=== PATIENT | male | born 1955 | race Caucasian/White ===

== ENCOUNTER 2018-03-24 01:30 | Emergency (ER) | payer MEDICAID, SELFPAY ==
--- NOTE | 2018-03-24 01:30 | DT_ITS ---
This patient was seen during an EMR downtime March 23, 2018 - March 30, 2018. This patient may have a combination of paper and electronic documentation or all paper documentation. All documentation is viewable within the e-chart portion of [employer] for each patient visit.
--- NOTE | 2018-03-24 01:50 | RAD_ITS ---
STUDY: X-RAY CHEST REASON FOR EXAM: Male, 62 years old. Endotracheal and NG tube placement. TECHNIQUE: Single frontal view of the chest. COMPARISON: August 27, 2017 FINDINGS: An endotracheal tube is present with the tip projecting approximately 3.4 cm above the alfredito. An NG tube is present with the tip at the gastroesophageal junction. The tip should be advanced at least 9 cm. There is a new diffuse interstitial pattern which has the appearance of interstitial edema/congestive failure. There is no demonstrated pleural abnormality. Normal size heart. Normal mediastinum and krystyna. Normal visualized pulmonary arteries. Normal visualized aortic arch and descending thoracic aorta. Normal visualized thoracic spine. Normal visualized ribs, clavicles, and shoulders. There is no demonstrated abnormality of the visualized soft tissue structures of the upper abdomen. RAD/Chest 1 View (Portable) IMPRESSION: NG tube tip at gastroesophageal junction. This should be advanced at least 9 cm. Interval development of diffuse interstitial pattern most compatible with interstitial edema/congestive failure. Electronically Signed: William Marie MD at 11:23 EDT , Service support ,
--- NOTE | 2018-03-24 01:55 | RAD_ITS ---
STUDY: X-RAY CHEST REASON FOR EXAM: Male, 62 years old. Nasogastric tube placement/repositioning. TECHNIQUE: Single AP portable supine view of the lower chest and upper abdomen. COMPARISON: 2 portable AP views of the chest and upper abdomen 1356 hours. FINDINGS: The tip of the nasogastric tube now extends below the esophagogastric junction by a 2-3 cm. The sidehole is still in the distal esophagus. There are persistent, asymmetric mixed interstitial and alveolar densities in the visualized lung hui, consistent with inflammatory changes or pulmonary edema. There is no demonstrated pleural abnormality. Normal size heart. Normal mediastinum and krystyna. Normal visualized aortic arch and descending thoracic aorta. There are table multilevel degenerative changes of the visualized spine. Normal visualized ribs, clavicles, and shoulders. There is no demonstrated abnormality of the visualized soft tissue structures of the upper abdomen. RAD/Chest 1 View (Portable) IMPRESSION: 1. Tip of the nasogastric tube is now just below the esophagogastric junction, its sidehole still in the distal esophagus. 2. Stable asymmetric mixed interstitial and alveolar pulmonary inflammatory infiltrates or edema. Electronically Signed: Edilberto Bartholomew MD at 13:58 EDT , Service support ,
--- NOTE | 2018-03-24 11:36 | EKG12_ITS ---
Test Reason : SOB Blood Pressure : / mmHG Vent. Rate : 107 BPM Atrial Rate : 107 BPM P-R Int : 126 ms QRS Dur : 096 ms QT Int : 354 ms P-R-T Axes : 070 011 090 degrees QTc Int : 472 ms Sinus tachycardia Biatrial enlargement Nonspecific T wave abnormality Abnormal ECG Confirmed by MARIANA DORMAN, CORI ([id number]), online content editor VESTA JARA ([id number] on 04/01/2018 6:16:41 PM Referred By: Leta King Confirmed By:CORI PEÑA MD
[2018-03-27 13:12] LABS: Basophil% 1.1 % (0-1); Differential Indicated SCAN CRITERIA MET; Eosinophils% 6.5 % (0-5); Hematocrit 57.4 % (40-54); Hemoglobin 17.8 g/dl (13.0-16.5); Lymphocyte % 37.7 % (19-41); Mean Corpuscular Hgb 28.8 pg (27.0-32.0); Mean Corpuscular Volume 92.9 fL (80-94); Mean Platelet Vol. 11.4 fl (6.2-12.0); Neutrophil % 45.7 % (47-70); POSITIVE COUNT NO; POSITIVE DIFFERENTIAL YES; POSITIVE MORPHOLOGY NO; Platelet Count 261 K/mm3 (150-450); RBC Distribution Width CV 15.2 % (11.6-14.6); RBC Distribution Width SD 51.3 fl (35.1-43.9); Red Blood Count 6.18 M/mm3 (4.6-6.2); White Blood Count 16.1 K/mm3 (4.4-11.0)
[2018-03-27 13:13] LABS: Absolute Lymphocyte Count 6.07 X10^3/ul (0.83-4.51); Absolute Neutrophil Count 7.4 X10^3/uL (2.0-7.7); Basophil# 0.17 X10^3/uL; Differential Comment SCANNED; Eosinophil# 1.04 X10^3/uL; Lymphocyte # 6.07 X10^3/ul (4.0); Monocyte# 1.28 X10^3/uL; Neutrophil # 7.36 X10^3/uL (2.7-7.7)
[2018-03-28 09:37] LABS: BUN 18 mg/dL (7-18); BUN/Creat Ratio 11.1 RATIO (10-20); Creatinine, Serum 1.62 mg/dL (0.70-1.30); EST Glomerular Filtration Rate 46 mL/min (>60); Est Glom Filt Rate - Afr Amer 56 mL/min (>60); Glucose 216 mg/dL (74-106); Lactic Acid 3.5 mmol/L (0.4-2.0); Protein, Total 8.5 g/dL (6.4-8.2)
[2018-03-28 09:38] LABS: ALB/GLOB Ratio 0.9 RATIO (0.9-2.4); AST(SGOT) 154 U/L (15-37); Alanine Aminotransfer ALT/SGPT 104 U/L (16-61); Alkaline Phosphatase 142 U/L (45-117); Anion Gap 6 (5-15); Calcium,Total 8.8 mg/dL (8.5-10.1); Chloride 107 mmol/L (98-107); Globulin 4.5 g/dL (2.2-4.2); Potassium 4.1 mmol/L (3.5-5.1); Sodium Level 142 mmol/L (136-145)
[2018-03-30 14:51] LABS: Allen Test POS; Base Excess -2 mmol/L (-2 to +2); Bicarbonate 27.2 mmol/L (22-26); Blood Gas Specimen Type ART; FI02 100; Mode A-C; O2 Delivery Device Vent; PEEP 5; PO2 298 mmHG (75-100); RR 14; SITE R Radial; SO2 100 % (95-99); Time Given 210; Total Carbon Dioxide 30 mmol/L; Vt 450; pCO2 82.1 mmHg (35-45); pH 7.13 (7.35-7.45)
== END 2018-03-24 03:28 | disposition short-term general hospital (02) ==
LOC: ED 03-25 16:28
PROVIDERS: Emergency Provider Emergency Medicine; Family Provider Nurse Practitioner Family; PCP Nurse Practitioner Family
DX: J96.91 Respiratory failure, unspecified with hypoxia (principal); J44.9 Chronic obstructive pulmonary disease, unspecified; F17.210 Nicotine dependence, cigarettes, uncomplicated
CPT/HCPCS: 31500; 36415; 36600; 71045; 80053; 82803; 83605; 84484; 85025; 87040; 93005; 94002; 94640; 96374; 96375; 99251; 99285; J7030; A4216; G0463

== ENCOUNTER → 2019-05-14 06:18 | Outpatient (CLI) | payer MEDICAID, SELFPAY ==
--- NOTE | 2019-05-20 10:17 | STRESSREP ---
Stress Test Report Date: 05/14/2019 Procedure: Pharmacologic stress nuclear imaging study Indications: Chest pain Consent: Per the patient Procedure: The patient underwent pharmacologic (Regadenoson) evaluation with a peak heart rate of 92 beats per minute (58 %predicted maximal heart rate) and a peak blood pressure of 152/90 mmHg. The baseline ECG demonstrated normal sinus rhythm no significant ST-T changes. EKG during lexiscan infusion revealed no significant change from baseline. EKG post infusion revealed no significant change from baseline [There were no cardiac dysrhythmias pretest, during pharmacologic infusion, or recovery]. [There was no complaint of chest discomfort during pharmacologic infusion or recovery]. The examination was discontinued secondary to completion of protocol. Impression: 1. Lexiscan stress test test is negative for Lexiscan infusion induced EKG changes of ischemia. 2. Lexiscan stress test test is negative for Lexiscan infusion induced chest pain. 3. Results of the nuclear portion of the test is as below Myocardial perfusion imaging study: Technique: The patient was injected with 14.1 millicuries of technetium 99m Cardiolite and subsequently rest SPECT Cardiolite nuclear imaging was obtained in the horizontal long, vertical long, and short axis views. The patient underwent pharmacologic (Regadenoson) evaluation. Please see above for details. The patient was injected with 44.4 millicuries of technetium 99m Cardiolite and subsequently stress SPECT Cardiolite nuclear imaging was obtained in the horizontal long, vertical long, and short axis views. A gated Cardiolite study at peak stress was obtained. Interpretation: Rest and stress SPECT Cardiolite nuclear imaging status post realignment, normalization, and attenuation correction demonstrate mild decrease in radioisotope uptake in the inferior wall and apex prior to attenuation correction. After recognition correction there is improvement in the uptake in the inferior wall and apex with mild decrease in the apical uptake. There is no significant reversibility suggestive of significant ischemia. There is no evidence of significant infarction. The apical fixed perfusion defect is likely apical thinning a normal variant gated images reveal no significant regional wall motion abnormalities. The reported LVEF is 52 %. Impression: 1. There is no evidence of significant ischemia or infarction. 2. Estimated ejection fraction is 52%. This note was generated with [employer] software. It may contain incorrect words, spelling, and punctuation that were not noted in checking the note before signing.
== END ==
PROVIDERS: Family Provider Nurse Practitioner Family; PCP Nurse Practitioner Family; Referring Provider Nurse Practitioner Family; Visit Provider Nurse Practitioner Family
DX: R07.89 Other chest pain (principal); I50.9 Heart failure, unspecified; R06.02 Shortness of breath
CPT/HCPCS: 78452; 93017; A9500; A4216; J2785

== ENCOUNTER → 2019-09-21 12:50 | Outpatient (REF) | payer MEDICAID, SELFPAY ==
[2019-09-14 13:30] VITALS: BMI 35.3
== END ==
LOC: CVS 12:50
PROVIDERS: Family Provider Nurse Practitioner Family; PCP Nurse Practitioner Family; Referring Provider Specialist; Visit Provider Specialist
DX: R55 Syncope and collapse (principal)
CPT/HCPCS: 93270; 93271

== ENCOUNTER 2021-06-06 14:24 | Inpatient (IN) | payer MEDICARE, MEDICAID, SELFPAY ==
[2021-06-06] VITALS (16 sets, daily range): BP systolic 133–156; BP diastolic 78–83; PULSE 87–106; RESP 18–25; TEMP 36.6–36.9; O2SAT 87–96; BMI 33.7; BMI 33.4
--- NOTE | 2021-06-06 14:45 | RAD_ITS ---
STUDY: X-RAY CHEST REASON FOR EXAM: Male, 66 years old. SOB TECHNIQUE: Single AP portable view of the chest. COMPARISON: Comparison is made with prior study dated 03/24/2018. FINDINGS: EKG electrodes are seen. Hyperinflation. Stable mild increased markings at the lung bases suggestive of bibasilar scarring. There is no demonstrated pleural abnormality. Normal size heart. Normal mediastinum and krystyna. Normal visualized pulmonary arteries. Normal visualized aortic arch and descending thoracic aorta. Normal visualized thoracic spine. Normal visualized ribs, clavicles, and shoulders. There is no demonstrated abnormality of the visualized soft tissue structures of the upper abdomen. RAD/Chest 1 View IMPRESSION: Stable bibasilar increased markings at the lung bases suggestive of bibasilar scarring. Electronically Signed: Chalo Bonilla MD at 15:15 EDT , Service support ,
[2021-06-06 14:46] LABS: Absolute Lymphocyte Count 2.15 X10^3/uL (0.83-4.51); Absolute Neutrophil Count 7.7 X10^3/uL (2.0-7.7); Basophil# 0.08 X10^3/uL; Basophil% 0.7 % (0-1); Eosinophil# 0.55 X10^3/uL; Eosinophils% 4.8 % (0-5); Hematocrit 50.4 % (40-54); Hemoglobin 15.9 g/dL (13.0-16.5); Lymphocyte # 2.15 X10^3/ul (0.83-4.51); Lymphocyte % 18.9 % (19-41); Mean Corp Hgb Conc 31.5 g/dL (32-36); Mean Corpuscular Volume 91.8 fL (80-94); Mean Platelet Vol. 9.7 fl (6.2-12.0); Monocyte# 0.83 X10^3/uL; Monocyte% 7.3 % (0-10); NRBC Flagged by Analyzer 0 % (0-5); Neutrophil # 7.69 X10^3/uL (2.7-7.7); Neutrophil % 67.8 % (47-70); Platelet Count 328 K/mm3 (150-450); RBC Distribution Width CV 14.8 % (11.6-14.6); RBC Distribution Width SD 50.5 fl (35.1-43.9); Red Blood Count 5.49 M/mm3 (4.6-6.2); White Blood Count 11.4 K/mm3 (4.4-11.0)
[2021-06-06 15:01] LABS: Anion Gap 7 (5-15); BUN 22 mg/dL (7-18); BUN/Creat Ratio 14.7 RATIO (10-20); Calcium,Total 9.1 mg/dL (8.5-10.1); Chloride 104 mmol/L (98-107); EST Glomerular Filtration Rate 50 mL/min (>60); Est Glom Filt Rate - Afr Amer 61 mL/min (>60); Estimated Creatinine Clearance 41.66 ml/min; Glucose 97 mg/dL (74-106); Potassium 3.9 mmol/L (3.5-5.1); Sodium Level 140 mmol/L (136-145)
--- NOTE | 2021-06-06 15:05 | EKG12_ITS ---
Test Reason : SOB Blood Pressure : / mmHG Vent. Rate : 089 BPM Atrial Rate : 089 BPM P-R Int : 138 ms QRS Dur : 090 ms QT Int : 344 ms P-R-T Axes : 067 011 072 degrees QTc Int : 418 ms Normal sinus rhythm Normal ECG Confirmed by MARIANA DORMAN, CORI ([id number]), film editor supervisor EDU GUTIERREZ ([id number]) on 06/11/2021 8:36:10 AM Referred By: ELLIS Confirmed By:CORI PEÑA MD
[2021-06-06] MEDS: Ipratropium/Albuterol Sulfate 3 ML AMPUL.NEB INHALATION ×3 (15:26→23:01)
[2021-06-06 15:31] LABS: Troponin-I HS 8 pg/mL (3.0-78.0)
[2021-06-06] MEDS: MethylPREDNISolone 125 MG/2 ML Vial IV (15:52)
[2021-06-06] MEDS: Albuterol 2.5 MG/3 ML VIAL.NEB. INHALATION ×2 (16:09)
--- NOTE | 2021-06-06 16:13 | ED.VIS.DYS ---
HPI History of Present Illness Chief Complaint: Shortness of Breath Informant: patient Narrative Narrative: 66-year-old male with a history of COPD chronic kidney disease hypertension presents to the emergency department with worsening shortness of breath for 2 weeks. Patient notes a cough with some mild sputum production. He notes dyspnea on exertion. No reported fevers. [facility] Medical History (Updated 06/06/21 @ 16:[address] Carlos Manley DO) Acute diverticulitis Chest pain CHF (congestive heart failure) CKD (chronic kidney disease), stage III Colitis, acute COPD (chronic obstructive pulmonary disease) COPD with exacerbation Cough Diverticulitis large intestine Diverticulitis of large intestine with abscess Essential hypertension Sepsis Shortness of breath Small bowel obstruction Tobacco use Type 2 diabetes mellitus without complication Home Medications albuterol sulfate 90 mcg/actuation aerosol inhaler 2 puff INHALATION 4X/DAY PRN g 06/03/19 [History Last Taken Unknown] amlodipine 5 mg tablet 5 mg PO DAILY 06/03/19 [History Last Taken Unknown] budesonide-formoterol HFA 160 mcg-4.5 mcg/actuation aerosol inhaler 2 puff INHALATION BID 06/03/19 [History Last Taken Unknown] tiotropium bromide 18 mcg capsule with inhalation device 1 cap INHALATION DAILY 06/03/19 [History Last Taken Unknown] losartan 100 mg-hydrochlorothiazide 12.5 mg tablet 1 tab PO DAILY #90 tab 06/23/19 [Rx Last Taken Unknown] losartan 100 mg tablet 100 mg PO DAILY #90 tab 08/03/20 [Rx Last Taken Unknown] hydrochlorothiazide 25 mg tablet 25 mg PO DAILY #90 tab 08/17/20 [Rx Last Taken Unknown] Allergy/AdvReac Type Severity Reaction Status Date / Time lisinopril AdvReac Intermediate cough Verified 06/06/21 14:28 Family History Mother Diabetes Father Diabetes Brother CAD (coronary artery disease) stents Brother , age 58 CAD (coronary artery disease) stents Sister Diabetes Surgical History History of appendectomy Social History Smoking Status: Former smoker how long ago did patient quit smokin week ago alcohol intake: never substance use type: does not use caffeine: Yes Type: coffee Number of servings: 1 ROS ROS ED Constitutional Constitutional ED: Denies chills or weight loss Eyes Eyes: Denies change in vision or diplopia ENT ENT ED: Denies ear pain, rhinorrhea or sore throat Cardiovascular Cardiovascular: Denies chest pain, orthopnea, palpitations or racing heartbeat Respiratory/Chest Respiratory/Chest: Reports cough, dyspnea, dyspnea on exertion and sputum; Denies orthopnea Gastrointestinal Gastrointestinal: Denies abdominal pain, diarrhea, nausea or vomiting Genitourinary Genitourinary ED: Denies dysuria, hematuria or urinary frequency Musculoskeletal Musculoskeletal: Denies arthralgias or myalgias Integumentary Denies abscess or rash Neurologic Neurologic: Denies headache(s) or weakness Psychiatric Psychiatric: Denies anxiety, depression, suicidal ideation or suicidal thoughts Endocrine Endocrinology: Denies polydipsia, polyphagia or polyuria Allergic/Immunologic Allergic/Immunologic ED: Denies mouth swelling, tongue swelling or urticaria EXAM Physical Exam Narrative Exam Narrative: 66-year-old male sitting in the bed. He is on 2 L nasal cannula and is satting 89%. Const Vital Signs: 06/06/21 14:25 06/06/21 14:27 06/06/21 14:49 Temperature 97.8 F 97.8 F Temperature Source Temporal Temporal Pulse Rate 97 97 Respiratory Rate 18 18 Respiratory Effort Respiratory Depth Respiratory Pattern Blood Pressure 156/80 H 156/80 H Blood Pressure Mean 105 105 Pulse Ox 92 92 88 Oxygen Delivery Method Room Air Room Air Room Air Oxygen Flow Rate (L/min) 06/06/21 14:52 06/06/21 15:27 06/06/21 15:30 Temperature 98.2 F Temperature Source Oral Pulse Rate 87 88 Respiratory Rate 24 H 21 H Respiratory Effort Short of Breath Labored Respiratory Depth Shallow Respiratory Pattern Tachypnea Blood Pressure 138/83 H Blood Pressure Mean 101 Pulse Ox 91 95 93 Oxygen Delivery Method Nasal Cannula Nasal Cannula Nasal Cannula Oxygen Flow Rate (L/min) 2 3 2 Positive well nourished and well developed General Appearance ED: well developed HEENT Reports normocephalic, head/scalp atraumatic and moist mucous membranes Eyes PERRL and EOMs intact bilaterally Neck no lymphadenopathy, supple and no JVD Resp Effort and Inspection: other Tachypnea Auscultation: wheezes and diminished lung sounds Cardio regular rate, regular rhythm and no murmurs GI normal to inspection, nondistended, normoactive bowel sounds and non-tender Palpation: soft Back/Spine no CVA tenderness and normal ROM Extremity normal to inspection General Extremety ED: Negative for edema General Extremity: Negative for edema Neuro oriented x3 and CN's II-XII intact bilaterally Sensorium / Orientation: alert Motor Exam: strength 5/5 throughout Psych mental status grossly normal Mood & Affect: Negative for depressed or tearful Skin no rashes or lesions noted and no wounds MDM MDM MDM Narrative Medical decision making narrative: White count slightly elevated 11.4. Troponin is 8. My impression of the chest x-ray is no acute process. Patient received Solu-Medrol as well as breathing treatments. Post breathing treatments on room air he is 88%. Plan will be for admission. Covid is negative. Lab Data Attestation: I reviewed the patient's lab results. Labs: Laboratory Results - last 24 hr 06/06/21 06/06/21 06/06/21 14:39 14:39 14:39 WBC 11.4 H RBC 5.49 Hgb 15.9 Hct 50.4 MCV 91.8 MCH 29.0 MCHC 31.5 L RDW Std Deviation 50.5 H RDW Coeff of Kannan 14.8 H Plt Count 328 MPV 9.7 Immature Gran % (Auto) 0.500 Neut % (Auto) 67.8 Lymph % (Auto) 18.9 L Franklin % (Auto) 7.3 Eos % (Auto) 4.8 Baso % (Auto) 0.7 Absolute Neuts (auto) 7.7 Absolute Lymphs (auto) 2.15 Nucleated RBC % 0 Sodium 140 Potassium 3.9 Chloride 104 Carbon Dioxide 29.0 Anion Gap 7 BUN 22 H Creatinine 1.50 H Estim Creat Clear Calc 41.66 Est GFR (MDRD) Af Amer 61 Est GFR (MDRD) Non-Af 50 L BUN/Creatinine Ratio 14.7 Glucose 97 Lactic Acid Calcium 9.1 Troponin I High Sens 8 06/06/21 15:20 WBC RBC Hgb Hct MCV MCH MCHC RDW Std Deviation RDW Coeff of Kannan Plt Count MPV Immature Gran % (Auto) Neut % (Auto) Lymph % (Auto) Franklin % (Auto) Eos % (Auto) Baso % (Auto) Absolute Neuts (auto) Absolute Lymphs (auto) Nucleated RBC % Sodium Potassium Chloride Carbon Dioxide Anion Gap BUN Creatinine Estim Creat Clear Calc Est GFR (MDRD) Af Amer Est GFR (MDRD) Non-Af BUN/Creatinine Ratio Glucose Lactic Acid 0.7 Calcium Troponin I High Sens Radiography Diagnostic Testing: Radiology Impression Chest X-Ray 06/06/21 14:45 IMPRESSION: Stable bibasilar increased markings at the lung bases suggestive of bibasilar scarring. Electronically Signed: Chalo Bonilla MD at 15:15 EDT , Service support , EKG Initial EKG: Attestation: I personally reviewed and interpreted this EKG as follows: Comments: Normal sinus rhythm at a rate of 89 bpm Discharge Plan Dx/Rx/DC Orders Clinical Impression: Acute exacerbation of chronic obstructive pulmonary disease, Hypoxemia Disposition Disposition: Acute Care [facility]
[2021-06-06 16:15] LABS: Lactic Acid 0.7 mmol/L (0.4-1.9)
--- NOTE | 2021-06-06 16:38 | PCM.HP.STD ---
Documented by User: SCOT Pepper 06/06/21 17:46 HPI - General General Date of Admission: 06/06/21 Date of Service: 06/06/21 Chief Complaint: Shortness of breath HPI Narrative JESUS RICARDO, is a 66 M who presents with complaints of worsening shortness of breath over the past 2 weeks. Patient also notes that he has had an increase in sputum production and an increase in the severity of his cough. Patient notes that he has more shortness of breath with exertion. Patient has a history of CHF, COPD, chronic kidney disease. Patient denies fever, chills, chest pain, nausea, vomiting. [facility] Medical History Acute diverticulitis Chest pain CHF (congestive heart failure) CKD (chronic kidney disease), stage III Colitis, acute COPD (chronic obstructive pulmonary disease) COPD with exacerbation Cough Diverticulitis large intestine Diverticulitis of large intestine with abscess Essential hypertension Sepsis Shortness of breath Small bowel obstruction Tobacco use Type 2 diabetes mellitus without complication Home Medications albuterol sulfate 90 mcg/actuation aerosol inhaler 2 puff INHALATION 4X/DAY PRN g 06/03/19 [History Last Taken 06/06/21] amlodipine 5 mg tablet 5 mg PO DAILY 06/03/19 [History Last Taken 06/05/21] budesonide-formoterol HFA 160 mcg-4.5 mcg/actuation aerosol inhaler 2 puff INHALATION BID 06/03/19 [History Last Taken 06/06/21] tiotropium bromide 18 mcg capsule with inhalation device 1 cap INHALATION DAILY 06/03/19 [History Last Taken 06/06/21] losartan 100 mg-hydrochlorothiazide 12.5 mg tablet 1 tab PO DAILY #90 tab 06/23/19 [Rx Last Taken 06/06/21] [id number] [Trelegy Ellipta] 1 inh INHALATION DAILY 06/06/21 [History Last Taken Unknown] Allergy/AdvReac Type Severity Reaction Status Date / Time lisinopril AdvReac Intermediate cough Verified 06/06/21 14:28 Family History Mother Diabetes Father Diabetes Brother CAD (coronary artery disease) stents Brother , age 58 CAD (coronary artery disease) stents Sister Diabetes Surgical History History of appendectomy Social History Smoking Status: Current every day smoker tobacco type: cigarettes alcohol intake: never substance use type: does not use caffeine: Yes Type: coffee Number of servings: 1 ROS Constitutional Constitutional: Denies anorexia, chills, fatigue, fever(s) or weakness Cardiovascular Cardiovascular: Denies chest pain, edema or palpitations Respiratory/Chest Respiratory/Chest: Reports cough, dyspnea on exertion, shortness of breath at rest, shortness of breath with exertion and tachypnea Gastrointestinal Gastrointestinal: Denies abdominal pain, constipation, diarrhea, nausea or vomiting Genitourinary Genitourinary: Denies dysuria Musculoskeletal Musculoskeletal: Denies back pain, extremity pain, joint pain or joint stiffness Integumentary Integumentary: Denies dry skin Neurologic Neurologic: Denies abnormal gait, abnormal speech, confusion, dizziness or focal weakness Psychiatric Psychiatric: Denies anxiety or depression Endocrine Endocrinology: Denies change in body appearance Hematologic/Lymphatic Hematologic/Lymphatic: Denies easy bleeding or easy bruising Vital Signs Vital Signs Vital Signs: 06/06/21 14:25 06/06/21 14:27 06/06/21 14:49 Temperature 97.8 F 97.8 F Temperature Source Temporal Temporal Pulse Rate 97 97 Respiratory Rate 18 18 Respiratory Effort Respiratory Depth Respiratory Pattern Blood Pressure 156/80 H 156/80 H Blood Pressure Mean 105 105 Pulse Ox 92 92 88 Oxygen Delivery Method Room Air Room Air Room Air Oxygen Flow Rate (L/min) 06/06/21 14:52 06/06/21 15:27 06/06/21 15:30 Temperature 98.2 F Temperature Source Oral Pulse Rate 87 88 Respiratory Rate 24 H 21 H Respiratory Effort Short of Breath Labored Respiratory Depth Shallow Respiratory Pattern Tachypnea Blood Pressure 138/83 H Blood Pressure Mean 101 Pulse Ox 91 95 93 Oxygen Delivery Method Nasal Cannula Nasal Cannula Nasal Cannula Oxygen Flow Rate (L/min) 2 3 2 06/06/21 16:17 Temperature Temperature Source Pulse Rate 95 Respiratory Rate 25 H Respiratory Effort Respiratory Depth Respiratory Pattern Blood Pressure Blood Pressure Mean Pulse Ox Oxygen Delivery Method Oxygen Flow Rate (L/min) Weight Weight: 197 lb Body Mass Index (BMI) 33.7 Physical Exam Const alert, oriented x3 and no apparent distress General Appearance: cooperative HEENT normocephalic and head/scalp atraumatic Eyes conjunctivae normal and no scleral icterus Neck supple and no JVD General: trachea midline Resp normal respiratory effort and normal air movement Effort and Inspection: tachypneic Auscultation: wheezes expiratory wheezes Cardio regular rate, regular rhythm, S1 normal heart sound and S2 normal heart sound GI normal to inspection, nondistended, normoactive bowel sounds, soft to palpation and non-tender Extremity normal capillary refill and no clubbing, cyanosis or edema General Extremity: no tenderness to palpation of joints or extremities Skin General Skin Exam: no breakdown and turgor normal Lesions: no lesions Rashes: no rashes Neuro no focal motor deficits and no sensory deficits noted Speech: speech normal Motor Exam: Negative for general weakness Psych thought process normal, cooperative and affect normal Appearance: appropriate Results Lab / Micro Data Result Diagrams: 06/06/21 14:39 06/06/21 14:39 Labs: Laboratory Results - last 24 hr 06/06/21 14:39: WBC 11.4 H, RBC 5.49, Hgb 15.9, Hct 50.4, MCV 91.8, MCH 29.0, MCHC 31.5 L, RDW Std Deviation 50.5 H, RDW Coeff of Kannan 14.8 H, Plt Count 328, MPV 9.7, Immature Gran % (Auto) 0.500, Neut % (Auto) 67.8, Lymph % (Auto) 18.9 L, Lamb % (Auto) 7.3, Eos % (Auto) 4.8, Baso % (Auto) 0.7, Absolute Neuts (auto) 7.7, Absolute Lymphs (auto) 2.15, Nucleated RBC % 0 06/06/21 14:39: Sodium 140, Potassium 3.9, Chloride 104, Carbon Dioxide 29.0, Anion Gap 7, BUN 22 H, Creatinine 1.50 H, Estim Creat Clear Calc 41.66, Est GFR (MDRD) Af Amer 61, Est GFR (MDRD) Non-Af 50 L, BUN/Creatinine Ratio 14.7, Glucose 97, Calcium 9.1 06/06/21 14:39: Troponin I High Sens 8 06/06/21 15:20: Lactic Acid 0.7 Micro: Microbiology 06/06/21 14:38 Mucosa - Nose SARS-CoV-2 Antigen (Rapid) - Final Radiology Impression Chest X-Ray 06/06/21 14:45 IMPRESSION: Stable bibasilar increased markings at the lung bases suggestive of bibasilar scarring. Electronically Signed: Chalo Bonilla MD at 15:15 EDT , Service support , Assessment & Plan Assessment/Plan (1) Acute exacerbation of chronic obstructive pulmonary disease: PLAN: 1. Acute exacerbation of COPD -Admit to [facility] for observation -Chest x-ray negative for pneumonia or edema, Covid antigen negative as well -Continue oxygen therapy per protocol -As needed albuterol nebulizer treatments ordered along with scheduled DuoNeb -IV Solu-Medrol ordered -CBC and BMP ordered daily -No signs per protocol 2. Hypertension -Continue home medication regimen including amlodipine, losartan.. -No signs per protocol trend BP 3. CHF -Stable, no peripheral edema noted. -Continue home medication regimen 4. Chronic kidney disease stage IIIa -Patient consistent with baseline creatinine. -BMP ordered daily, will trend DVT prophylaxis-not indicated This patient was seen by Anitha Tapia NP-C under the supervision of Dr. David. Documented by User: Dr. Artie David, 06/06/21 17:56 HPI - General General Date of Admission: 06/06/21 Chief Complaint: Shortness of breath HPI Narrative Six 6-year-old male presents with increasing shortness of breath over the past several weeks. He presented here 88% on room air. Patient had chest x-ray that was negative for any infiltrate or pulmonary vascular congestion. COVID-19 test was negative. Patient was treated for acute exacerbation of COPD with bronchodilators as well as methylprednisolone. [facility] Medical History Acute diverticulitis Chest pain CHF (congestive heart failure) CKD (chronic kidney disease), stage III Colitis, acute COPD (chronic obstructive pulmonary disease) COPD with exacerbation Cough Diverticulitis large intestine Diverticulitis of large intestine with abscess Essential hypertension Sepsis Shortness of breath Small bowel obstruction Tobacco use Type 2 diabetes mellitus without complication Home Medications albuterol sulfate 90 mcg/actuation aerosol inhaler 2 puff INHALATION 4X/DAY PRN g 06/03/19 [History Last Taken 06/06/21] amlodipine 5 mg tablet 5 mg PO DAILY 06/03/19 [History Last Taken 06/05/21] budesonide-formoterol HFA 160 mcg-4.5 mcg/actuation aerosol inhaler 2 puff INHALATION BID 06/03/19 [History Last Taken 06/06/21] tiotropium bromide 18 mcg capsule with inhalation device 1 cap INHALATION DAILY 06/03/19 [History Last Taken 06/06/21] losartan 100 mg-hydrochlorothiazide 12.5 mg tablet 1 tab PO DAILY #90 tab 06/23/19 [Rx Last Taken 06/06/21] [id number]-keuwnsrd [Trelegy Ellipta] 1 inh INHALATION DAILY 06/06/21 [History Last Taken Unknown] Allergy/AdvReac Type Severity Reaction Status Date / Time lisinopril AdvReac Intermediate cough Verified 06/06/21 14:28 Family History Mother Diabetes Father Diabetes Brother CAD (coronary artery disease) stents Brother , age 58 CAD (coronary artery disease) stents Sister Diabetes Surgical History History of appendectomy Social History Smoking Status: Current every day smoker tobacco type: cigarettes alcohol intake: never substance use type: does not use caffeine: Yes Type: coffee Number of servings: 1 ROS ROS Narrative All review of systems were negative except as mentioned above in the history of present illness and the other review of systems. Physical Exam Const alert Resp Auscultation: wheezes and diminished lung sounds Cardio regular rate, regular rhythm, S1 normal heart sound and S2 normal heart sound GI normal to inspection, nondistended, normoactive bowel sounds, soft to palpation, non-tender and non-distended Extremity no clubbing, cyanosis or edema Results Lab / Micro Data Attestation: I reviewed the patient's lab results. Result Diagrams: 06/06/21 14:39 06/06/21 14:39 Assessment & Plan Assessment/Plan (1) Acute exacerbation of chronic obstructive pulmonary disease: PLAN: Patient seen and examined independently. Data and vitals reviewed. I agree with the above note by the nurse practitioner. 1. Exacerbation of COPD Continue with bronchodilators as well as methylprednisolone. Prior to discharge, check an ambulatory pulse ox 2. Health maintenance Patient is unvaccinated for COVID-19. He told me that he has who a lot of bad things about the vaccine. I asked him what good things he is heard about COVID-19 to which he did not have an answer. I informed him that the likelihood of him having having severe consequences with COVID-19 given his underlying COPD are high and I disputed his claims that he heard people have from Covid vaccine. Told him I have not seen anyone of the COVID-19 vaccine and that he would have a higher likelihood of dying from Covid. I told the patient that if he were to contract Covid that he would have a high likelihood of going on ventilator as patient is being admitted for respiratory issues without Covid at this time. He agreed, least for now, to get the vaccine. Prior to discharge we'll see if we can arrange for him to get a shot of the [employer] COVID-19 vaccine. 3. VTE prophylaxis not indicated given current observation status. Charges/Coding Visit Charges OBSV E&M: 75859 Initial observation care L2
[2021-06-07] VITALS (13 sets, daily range): BP systolic 119–159; BP diastolic 62–71; PULSE 87–110; RESP 12–25; TEMP 36.2–36.8; O2SAT 90–94
[2021-06-07 05:25] LABS: Absolute Lymphocyte Count 0.85 X10^3/uL (0.83-4.51); Absolute Neutrophil Count 13.7 X10^3/uL (2.0-7.7); Basophil# 0.03 X10^3/uL; Basophil% 0.2 % (0-1); Hematocrit 49.9 % (40-54); Hemoglobin 15.8 g/dL (13.0-16.5); Lymphocyte # 0.85 X10^3/ul (0.83-4.51); Lymphocyte % 5.8 % (19-41); Mean Corp Hgb Conc 31.7 g/dL (32-36); Mean Corpuscular Hgb 29.2 pg (27.0-32.0); Mean Corpuscular Volume 92.2 fL (80-94); Mean Platelet Vol. 10.2 fl (6.2-12.0); Monocyte# 0.12 X10^3/uL; Monocyte% 0.8 % (0-10); NRBC Flagged by Analyzer 0 % (0-5); Neutrophil # 13.66 X10^3/uL (2.7-7.7); Neutrophil % 92.5 % (47-70); Platelet Count 333 K/mm3 (150-450); RBC Distribution Width CV 14.7 % (11.6-14.6); RBC Distribution Width SD 49.9 fl (35.1-43.9); Red Blood Count 5.41 M/mm3 (4.6-6.2); White Blood Count 14.8 K/mm3 (4.4-11.0)
[2021-06-07 05:37] LABS: Anion Gap 7 (5-15); BUN 28 mg/dL (7-18); BUN/Creat Ratio 16.4 RATIO (10-20); Calcium,Total 8.9 mg/dL (8.5-10.1); Chloride 103 mmol/L (98-107); Creatinine, Serum 1.71 mg/dL (0.70-1.30); EST Glomerular Filtration Rate 43 mL/min (>60); Est Glom Filt Rate - Afr Amer 52 mL/min (>60); Estimated Creatinine Clearance 36.54 ml/min; Glucose 143 mg/dL (74-106); Potassium 4.1 mmol/L (3.5-5.1); Sodium Level 138 mmol/L (136-145)
[2021-06-07] MEDS: Ipratropium/Albuterol Sulfate 3 ML AMPUL.NEB INHALATION ×4 (07:19→19:32)
[2021-06-07] MEDS: hydroCHLOROthiazide 25 MG Tablet PO (08:55)
[2021-06-07] MEDS: amLODIPine 5 MG Tablet PO (08:55)
[2021-06-07] MEDS: Acetaminophen 325 MG Tablet 650 MG PO (09:35)
[2021-06-07] MEDS: COVID-19 VAC,AD26(JANSSEN)/PF 0.5 ML SYRINGE IM (09:36)
[2021-06-07] MEDS: Losartan Potassium 100 MG Tablet PO (09:36)
--- NOTE | 2021-06-07 10:56 | PCM.PN.HOSP ---
Documented by User: Tc DISLA 06/07/21 11:09 Subjective Subjective Patient is a 66-year-old male comfortably resting in bed, alert and orient x3. Patient reports that his shortness of breath has improved admission, although he goes into coughing fits and gets short of breath with minimal exertion. Denies chest pain, palpitations, fever, chills, N/V/D. Objective Data Objective Data Vital Signs: Vital Signs Temp Pulse Resp BP Pulse Ox 97.2 F L 107 H 18 134/66 H 92 06/07/21 09:39 06/07/21 09:39 06/07/21 09:39 06/07/21 09:39 06/07/21 09:39 Oxygen Flow Rate (L/min) 4 Oxygen Delivery Method Nasal Cannula Weight: 194 lb 10.691 oz Body Mass Index (BMI) 33.4 Lab / Micro Data Result Diagrams: 06/07/21 04:54 06/07/21 04:54 Labs: Laboratory Results - last 24 hr 06/06/21 14:39: WBC 11.4 H, RBC 5.49, Hgb 15.9, Hct 50.4, MCV 91.8, MCH 29.0, MCHC 31.5 L, RDW Std Deviation 50.5 H, RDW Coeff of Kannan 14.8 H, Plt Count 328, MPV 9.7, Immature Gran % (Auto) 0.500, Neut % (Auto) 67.8, Lymph % (Auto) 18.9 L, Haakon % (Auto) 7.3, Eos % (Auto) 4.8, Baso % (Auto) 0.7, Absolute Neuts (auto) 7.7, Absolute Lymphs (auto) 2.15, Nucleated RBC % 0 06/06/21 14:39: Sodium 140, Potassium 3.9, Chloride 104, Carbon Dioxide 29.0, Anion Gap 7, BUN 22 H, Creatinine 1.50 H, Estim Creat Clear Calc 41.66, Est GFR (MDRD) Af Amer 61, Est GFR (MDRD) Non-Af 50 L, BUN/Creatinine Ratio 14.7, Glucose 97, Calcium 9.1 06/06/21 14:39: Troponin I High Sens 8 06/06/21 15:20: Lactic Acid 0.7 06/07/21 04:54: WBC 14.8 H, RBC 5.41, Hgb 15.8, Hct 49.9, MCV 92.2, MCH 29.2, MCHC 31.7 L, RDW Std Deviation 49.9 H, RDW Coeff of Kannan 14.7 H, Plt Count 333, MPV 10.2, Immature Gran % (Auto) 0.700, Neut % (Auto) 92.5 H, Lymph % (Auto) 5.8 L, Haakon % (Auto) 0.8, Eos % (Auto) 0.0, Baso % (Auto) 0.2, Absolute Neuts (auto) 13.7 H, Absolute Lymphs (auto) 0.85, Nucleated RBC % 0 06/07/21 04:54: Sodium 138, Potassium 4.1, Chloride 103, Carbon Dioxide 28.0, Anion Gap 7, BUN 28 H, Creatinine 1.71 H, Estim Creat Clear Calc 36.54, Est GFR (MDRD) Af Amer 52 L, Est GFR (MDRD) Non-Af 43 L, BUN/Creatinine Ratio 16.4, Glucose 143 H, Calcium 8.9 Micro: Microbiology 06/06/21 14:38 Mucosa - Nose SARS-CoV-2 Antigen (Rapid) - Final Radiography Diagnostic Testing: Radiology Impression Chest X-Ray 06/06/21 14:45 IMPRESSION: Stable bibasilar increased markings at the lung bases suggestive of bibasilar scarring. Electronically Signed: Chalo Bonilla MD at 15:15 EDT , Service support , Physical Exam Const alert, oriented x3 and no apparent distress HEENT head/scalp atraumatic and moist oral mucous membranes Head and Scalp: normocephalic Eyes PERRL, EOMs intact bilaterally and conjunctivae normal Neck no lymphadenopathy, supple and no JVD Resp Effort and Inspection: respiratory distress, labored and actively coughing Auscultation: diminished lung sounds Cardio no murmurs and no JVD Rate: tachycardic GI normal to inspection, nondistended, normoactive bowel sounds, soft to palpation and non-tender Extremity normal to inspection, full ROM and no clubbing, cyanosis or edema Skin no rashes or lesions noted, no wounds and skin turgor normal Neuro CN's II-XII intact bilaterally Psych affect normal Assessment & Plan Assessment/Plan (1) Chest pain: QUALIFIERS: Chest pain type: unspecified Qualified Code(s): R07.9 - Chest pain, unspecified (2) Shortness of breath: (3) Syncope: QUALIFIERS: Syncope type: unspecified Qualified Code(s): R55 - Syncope and collapse (4) Acute exacerbation of chronic obstructive pulmonary disease: PLAN: Day 2: See subjective. Disposition: Patient to be discharged home when medically ready, no home health care needs or additional therapies identified. 1) Acute on chronic COPD exacerbation. Patient reports improvement of shortness of breath and cough for admission, although still wheezing to coughing fits with minimal exertion. Currently satting 92% on 4 L via nasal cannula. Plan; remain admitted overnight, continue scheduled duo nebs, continue Solu-Medrol, albuterol as needed. 2) HTN Continue amlodipine and losartan. 3) mixed systolic/Diastoic CHF Not in acute exacerbation. Most recent echocardiogram was completed on 02/05 and demonstrated normal LV size with mild LVH and an ejection fraction of 45 to 50% with grade 1 diastolic dysfunction. Home medication regimen includes losartan-hydrochlorothiazide. No beta renetta or Lasix on home medication list. 4) CKD stage III Creatinine currently 1.7, below 1 at baseline. Plan; trend BMP. DVT prophylaxis - not indicated Patient seen by Tc Olson PA-C, under the supervision of Dr. David. Documented by User: Dr. Artie David, DO 06/07/21 17:10 Subjective Subjective Feels well but still requiring oxygen. Patient is not on oxygen at home. Patient is agreeable to getting the COVID-19 vaccine. Objective Data Lab / Micro Data Result Diagrams: 06/07/21 04:54 06/07/21 04:54 Physical Exam Const alert HEENT Head and Scalp: normocephalic Resp normal respiratory effort, no retractions, no use of accessory muscles and clear to auscultation bilaterally Cardio regular rate, regular rhythm, S1 normal heart sound and S2 normal heart sound GI normal to inspection, nondistended, normoactive bowel sounds, soft to palpation, non-tender and non-distended Assessment & Plan Assessment/Plan (1) Acute exacerbation of chronic obstructive pulmonary disease: PLAN: Patient seen and examined independently. Data and vitals reviewed. I agree with the above note by the physician psychological assistant. 1. Exacerbation of COPD Ongoing continue with bronchodilators as well as methylprednisolone. Prior to discharge, check an ambulatory pulse ox 2. Health maintenance 06/06: Patient is unvaccinated for COVID-19. He told me that he has who a lot of bad things about the vaccine. I asked him what good things he is heard about COVID-19 to which he did not have an answer. I informed him that the likelihood of him having having severe consequences with COVID-19 given his underlying COPD are high and I disputed his claims that he heard people have from Covid vaccine. Told him I have not seen anyone of the COVID-19 vaccine and that he would have a higher likelihood of dying from Covid. I told the patient that if he were to contract Covid that he would have a high likelihood of going on ventilator as patient is being admitted for respiratory issues without Covid at this time. He agreed, least for now, to get the vaccine. Prior to discharge we'll see if we can arrange for him to get a shot of the [employer] COVID-19 vaccine. 06/07: Patient was agreeable to getting the COVID-19 vaccine and was administered this morning. 3. VTE prophylaxis will initiate enoxaparin as patient is going to be hospitalized longer. Charges/Coding Visit Charges Inpatient E&M: 86033 Subs Hosp L2
--- NOTE | 2021-06-07 12:00 | CASEMGMT ---
This RN CM to room to complete CM assessment and pt is sleeping without distress. CM to check back later. [place] RN CM
--- NOTE | 2021-06-07 13:50 | CASEMGMT ---
TIM CUTLER assessment: Face to Face with patient for initial transition planning/care coordination assessment. TIM CUTLER introduced self and role at [facility], pt voices understanding and consents to assessment. Pt is sitting up in bed in no distress on 4L nc. Pt is A/Ox4 and answers all questions appropriately. Care providers, pharmacy, and demographics verified. Presentation: Pt c/o cough/SOB for 2 weeks Admitting dx: COPD exac PCP: [facility] Specialists: Pt states no current specialists. [facility]erred [facility]acy[facility] Insurance: MCR A/B Prescription Benefit: MCR D Living Will/HPOA: Pt states does not have AD's but is interested in info and possibly completing while here. LNOK: Bettye Morales, stepdaughter; Eliel Morales, stepshaily Living Arrangements: Pt states noe lives with him in 1 story home and states no concerns at home. Pt states is independent with ADL's. Transportation: Pt states drives self and states no transportation concerns. DME/HHC: Pt states no current DME and states no preference for DME company if qualifies for home oxygen at discharge. Pt states no hx of HHC or SNF. Pt states no concerns with going home at time of discharge. Pt is on disability. Pt states smokes a pack cigarettes daily but does not drink ETOH. Pt voices no further concerns/needs. CM to follow for home oxygen qualification and any further discharge planning/needs. Advised pt to ask for CM if any further questions/concerns/needs arise, voices understanding. Pt Goal: Home Plan: Home [place] TIM CUTLER
[2021-06-07] MEDS: 0.9% Saline Lock 10 ML Syringe IV (13:57)
[2021-06-07] MEDS: guaiFENesin Dm 10 ML UDC PO (21:42)
[2021-06-08] VITALS (15 sets, daily range): BP systolic 128–147; BP diastolic 56–80; PULSE 90–112; RESP 18–22; TEMP 36.4–36.6; O2SAT 79–96
[2021-06-08] MEDS: Ipratropium/Albuterol Sulfate 3 ML AMPUL.NEB INHALATION ×5 (02:09→19:23)
[2021-06-08] MEDS: Enoxaparin 40 MG/0.4 ML Syringe SC (05:02)
[2021-06-08] MEDS: guaiFENesin Dm 10 ML UDC PO ×3 (05:17→19:59)
[2021-06-08 05:35] LABS: Absolute Lymphocyte Count 1.03 X10^3/uL (0.83-4.51); Absolute Neutrophil Count 24.5 X10^3/uL (2.0-7.7); Basophil# 0.03 X10^3/uL; Basophil% 0.1 % (0-1); Hematocrit 48.6 % (40-54); Hemoglobin 15.7 g/dL (13.0-16.5); Lymphocyte # 1.03 X10^3/ul (0.83-4.51); Lymphocyte % 3.9 % (19-41); Mean Corp Hgb Conc 32.3 g/dL (32-36); Mean Corpuscular Hgb 29.3 pg (27.0-32.0); Mean Corpuscular Volume 90.8 fL (80-94); Mean Platelet Vol. 10.1 fl (6.2-12.0); Monocyte# 0.62 X10^3/uL; Monocyte% 2.4 % (0-10); NRBC Flagged by Analyzer 0 % (0-5); Neutrophil # 24.49 X10^3/uL (2.7-7.7); POSITIVE DIFFERENTIAL YES; Platelet Count 338 K/mm3 (150-450); RBC Distribution Width CV 14.9 % (11.6-14.6); RBC Distribution Width SD 49.1 fl (35.1-43.9); Red Blood Count 5.35 M/mm3 (4.6-6.2); White Blood Count 26.3 K/mm3 (4.4-11.0)
[2021-06-08 05:38] LABS: Differential Indicated SCAN CRITERIA MET
[2021-06-08 05:57] LABS: Differential Comment SCANNED
[2021-06-08 06:09] LABS: Anion Gap 6 (5-15); BUN 35 mg/dL (7-18); Chloride 103 mmol/L (98-107); Creatinine, Serum 1.52 mg/dL (0.70-1.30); EST Glomerular Filtration Rate 49 mL/min (>60); Est Glom Filt Rate - Afr Amer 60 mL/min (>60); Estimated Creatinine Clearance 41.11 ml/min; Glucose 150 mg/dL (74-106); Potassium 3.9 mmol/L (3.5-5.1); Sodium Level 136 mmol/L (136-145)
[2021-06-08] MEDS: hydroCHLOROthiazide 25 MG Tablet PO (09:04)
[2021-06-08] MEDS: Losartan Potassium 100 MG Tablet PO ×2 (09:04→09:05)
[2021-06-08] MEDS: amLODIPine 5 MG Tablet PO (09:04)
[2021-06-08] MEDS: Acetaminophen 325 MG Tablet 650 MG PO (09:05)
--- NOTE | 2021-06-08 10:28 | CASEMGMT ---
Green sheet on chart for home oxygen qualification. Mendez DUMONT CM
--- NOTE | 2021-06-08 11:42 | PCM.PN.HOSP ---
Documented by User: Tc DISLA 06/08/21 11:48 Subjective Subjective Patient is a 66-year-old male comfortably resting in bed, alert and oriented x3. Patient reports improvement of his shortness of breath and cough for admission. Denies chest pain, shortness of breath, palpitations, hemoptysis, sputum production, fever, chills, N/V/D. Objective Data Objective Data Vital Signs: Vital Signs Temp Pulse Resp BP Pulse Ox 97.5 F L 102 H 20 H 147/76 H 94 06/08/21 08:55 06/08/21 10:34 06/08/21 10:34 06/08/21 08:55 06/08/21 08:55 Oxygen Flow Rate (L/min) 5 Oxygen Delivery Method Nasal Cannula Weight: 194 lb 10.691 oz Body Mass Index (BMI) 33.4 Lab / Micro Data Result Diagrams: 06/08/21 05:02 06/08/21 05:02 Labs: Laboratory Results - last 24 hr 06/08/21 05:02: WBC 26.3 H, RBC 5.35, Hgb 15.7, Hct 48.6, MCV 90.8, MCH 29.3, MCHC 32.3, RDW Std Deviation 49.1 H, RDW Coeff of Kannan 14.9 H, Plt Count 338, MPV 10.1, Immature Gran % (Auto) 0.600, Neut % (Auto) 93.0 H, Lymph % (Auto) 3.9 L, [place] % (Auto) 2.4, Eos % (Auto) 0.0, Baso % (Auto) 0.1, Absolute Neuts (auto) 24.5 H, Absolute Lymphs (auto) 1.03, Nucleated RBC % 0, Differential Comment SCANNED 06/08/21 05:02: Sodium 136, Potassium 3.9, Chloride 103, Carbon Dioxide 27.0, Anion Gap 6, BUN 35 H, Creatinine 1.52 H, Estim Creat Clear Calc 41.11, Est GFR (MDRD) Af Amer 60, Est GFR (MDRD) Non-Af 49 L, BUN/Creatinine Ratio 23.0 H, Glucose 150 H, Calcium 9.0 Micro: Microbiology 06/06/21 15:20 Blood Culture (Wb) - Right Hand Blood Culture - Preliminary No growth in 48 hours. 06/06/21 14:39 Blood Culture (Wb) - Anticubital Right Blood Culture - Preliminary No growth in 48 hours. 06/06/21 14:38 Mucosa - Nose SARS-CoV-2 Antigen (Rapid) - Final Physical Exam Const alert, oriented x3 and no apparent distress HEENT head/scalp atraumatic and moist oral mucous membranes Head and Scalp: normocephalic Eyes PERRL, EOMs intact bilaterally and conjunctivae normal Neck no lymphadenopathy, supple and no JVD Resp no retractions and no use of accessory muscles Effort and Inspection: labored Auscultation: diminished lung sounds Cardio regular rhythm, no murmurs and no JVD Rate: tachycardic GI normal to inspection, nondistended, normoactive bowel sounds, soft to palpation and non-tender Extremity normal to inspection, full ROM and no clubbing, cyanosis or edema Skin no rashes or lesions noted, no wounds, skin turgor normal and no jaundice Neuro CN's II-XII intact bilaterally Psych affect normal Assessment & Plan Assessment/Plan (1) Chest pain: QUALIFIERS: Chest pain type: unspecified Qualified Code(s): R07.9 - Chest pain, unspecified (2) Shortness of breath: (3) Syncope: QUALIFIERS: Syncope type: unspecified Qualified Code(s): R55 - Syncope and collapse (4) Acute exacerbation of chronic obstructive pulmonary disease: PLAN: Day 2: See subjective. Disposition: Patient to be discharged home when medically ready, no home health care needs or additional therapies identified. 1) Acute on chronic COPD exacerbation. Patient reports continued improvement in his shortness of breath and cough from admission. When nurse attempted to ambulate patient on room air his oxygen saturations dropped to 79%. Patient is not medically ready for discharge. Plan; remain admitted overnight, continue scheduled duo nebs, continue Solu-Medrol, albuterol as needed. 2) HTN Continue amlodipine and losartan. 3) mixed systolic/Diastoic CHF Not in acute exacerbation. Most recent echocardiogram was completed on 02/05 and demonstrated normal LV size with mild LVH and an ejection fraction of 45 to 50% with grade 1 diastolic dysfunction. Home medication regimen includes losartan-hydrochlorothiazide. No beta renetta or Lasix on home medication list. 4) CKD stage III Creatinine currently 1.5, below 1 at baseline. Plan; trend BMP. DVT prophylaxis - not indicated Patient seen by Tc Olson PA-C, under the supervision of Dr. David. Documented by User: Dr. Artie David, DO 06/08/21 13:08 Subjective Subjective Feels better but still SOB and requiring oxygen Objective Data Lab / Micro Data Result Diagrams: 06/08/21 05:02 06/08/21 05:02 Physical Exam Const alert Resp Resp Narrative: diminished. faint bilateral wheezing. Cardio Cardio Narrative: tachycardic. regular. Assessment & Plan Assessment/Plan (1) Acute exacerbation of chronic obstructive pulmonary disease: PLAN: Patient seen and examined independently. Data and vitals reviewed. I agree with the above note by the physician wet process assistant head miller. 1. Exacerbation of COPD Ongoing slightly improved continue with bronchodilators as well as methylprednisolone. Prior to discharge, check an ambulatory pulse ox 2. Health maintenance 06/06: Patient is unvaccinated for COVID-19. He told me that he has who a lot of bad things about the vaccine. I asked him what good things he is heard about COVID-19 to which he did not have an answer. I informed him that the likelihood of him having having severe consequences with COVID-19 given his underlying COPD are high and I disputed his claims that he heard people have from Covid vaccine. Told him I have not seen anyone of the COVID-19 vaccine and that he would have a higher likelihood of dying from Covid. I told the patient that if he were to contract Covid that he would have a high likelihood of going on ventilator as patient is being admitted for respiratory issues without Covid at this time. He agreed, least for now, to get the vaccine. Prior to discharge we'll see if we can arrange for him to get a shot of the [employer] COVID-19 vaccine. 06/07: Patient was agreeable to getting the COVID-19 vaccine and was administered this morning. 3. VTE prophylaxis will initiate enoxaparin as patient is going to be hospitalized longer. Charges/Coding Visit Charges Inpatient E&M: 85664 Subs Hosp L2
[2021-06-08] MEDS: 0.9% Saline Lock 10 ML Syringe IV (13:51)
[2021-06-08] MEDS: Calcium Carbonate 500 MG Tablet 1000 MG PO (21:29)
[2021-06-09] VITALS (8 sets, daily range): BP systolic 128–152; BP diastolic 63–79; PULSE 96–102; RESP 18–22; TEMP 36.4–36.6; O2SAT 87–95
[2021-06-09] MEDS: Enoxaparin 40 MG/0.4 ML Syringe SC (05:02)
[2021-06-09] MEDS: guaiFENesin Dm 10 ML UDC PO (05:02)
[2021-06-09 06:17] LABS: Absolute Lymphocyte Count 0.83 X10^3/uL (0.83-4.51); Absolute Neutrophil Count 24.1 X10^3/uL (2.0-7.7); Basophil# 0.07 X10^3/uL; Basophil% 0.3 % (0-1); Hematocrit 51.9 % (40-54); Hemoglobin 16.3 g/dL (13.0-16.5); Lymphocyte # 0.83 X10^3/ul (0.83-4.51); Lymphocyte % 3.2 % (19-41); Mean Corp Hgb Conc 31.4 g/dL (32-36); Mean Corpuscular Hgb 28.7 pg (27.0-32.0); Mean Corpuscular Volume 91.5 fL (80-94); Mean Platelet Vol. 9.7 fl (6.2-12.0); Monocyte# 0.67 X10^3/uL; Monocyte% 2.6 % (0-10); NRBC Flagged by Analyzer 0 % (0-5); Neutrophil # 24.05 X10^3/uL (2.7-7.7); Neutrophil % 92.7 % (47-70); POSITIVE DIFFERENTIAL YES; Platelet Count 363 K/mm3 (150-450); RBC Distribution Width CV 14.9 % (11.6-14.6); RBC Distribution Width SD 49.4 fl (35.1-43.9); Red Blood Count 5.67 M/mm3 (4.6-6.2); White Blood Count 25.9 K/mm3 (4.4-11.0)
[2021-06-09 06:20] LABS: Differential Indicated SCAN CRITERIA MET
[2021-06-09 06:47] LABS: Anion Gap 5 (5-15); BUN 39 mg/dL (7-18); BUN/Creat Ratio 26.4 RATIO (10-20); Calcium,Total 9.3 mg/dL (8.5-10.1); Chloride 103 mmol/L (98-107); Creatinine, Serum 1.48 mg/dL (0.70-1.30); EST Glomerular Filtration Rate 51 mL/min (>60); Est Glom Filt Rate - Afr Amer 62 mL/min (>60); Estimated Creatinine Clearance 42.22 ml/min; Glucose 164 mg/dL (74-106); Potassium 3.9 mmol/L (3.5-5.1); Sodium Level 137 mmol/L (136-145)
[2021-06-09] MEDS: Ipratropium/Albuterol Sulfate 3 ML AMPUL.NEB INHALATION ×2 (06:57→11:06)
[2021-06-09 07:07] LABS: Differential Comment SCANNED
[2021-06-09] MEDS: hydroCHLOROthiazide 25 MG Tablet PO (08:16)
[2021-06-09] MEDS: amLODIPine 5 MG Tablet PO (08:16)
[2021-06-09] MEDS: Losartan Potassium 100 MG Tablet PO (08:17)
--- NOTE | 2021-06-09 10:38 | PCM.DC ---
Discharge Instructions Diet Discharge Diet: No restrictions Activity Discharge Activity: Return to Normal Activity Weight Bearing Status: Weight bearing as tolerated Dressing / Incision Call your doctor if you observe: Fever of 101 or Higher, Numbness or Tingling, Shortness of breath, Dizziness, Chest pain, Increased palpitations (irregular heartbeat) and Calf discomfort Follow Up Care Please Follow Up With: Primary care provider When: Within the next two weeks. Test Results: Test results from this visit will be discussed in further detail at your follow-up appointment, if applicable. Discharge Plan Admission Admit Date/Time: 06/07/21 09:10 Primary Reason for Your Visit: Shortness of breath Attending Provider: Artie David Primary Care Provider: Frank Tapia Instructions Patient Instructions: ED Chest Pain, Noncardiac Additional Instructions / Restrictions: Also b Discharge Orders/Prescriptions Prescriptions: New prednisone 20 mg tablet 40 mg PO DAILY Qty: 10 RF: 0 Continued albuterol sulfate 90 mcg/actuation HFA aerosol inhaler 2 puff inhalation 4X/DAY PRN (Reason: Dyspnea/Wheezing/Sob) RF: 0 amlodipine 5 mg tablet 5 mg PO DAILY RF: 0 budesonide-formoterol 160-4.5 mcg/actuation HFA aerosol inhaler 2 puff INHALATION BID RF: 0 tiotropium bromide 18 mcg capsule, w/inhalation device 1 cap INHALATION DAILY RF: 0 Trelegy Ellipta 100-62.5-25 mcg blister with device 1 inh INHALATION DAILY RF: 0 losartan-hydrochlorothiazide 100-12.5 mg tablet 1 tab PO DAILY Qty: 90 RF: 3 Referrals / Follow Up: Frank Tapia MD [Primary Care Provider] - Within 2 Weeks Disposition Disposition (needs filled in before D/C Order can be placed): Home, Self Care
--- NOTE | 2021-06-09 11:36 | DS.PCM_ITS ---
Documented by User: Tc DISLA 06/09/21 11:43 Providers Date of Admission: 06/07/21 Primary Care Physician: Dr. Frank Tpaia MD Reason For Visit: COPD EXACERBATION Diagnosis Discharge Diagnosis (1) Acute exacerbation of chronic obstructive pulmonary disease: Status: Chronic Code(s): J44.1 - Chronic obstructive pulmonary disease with (acute) exacerbation Medications at Discharge Home Medications albuterol sulfate 90 mcg/actuation aerosol inhaler 2 puff INHALATION 4X/DAY PRN g 06/03/19 amlodipine 5 mg tablet 5 mg PO DAILY 06/03/19 budesonide-formoterol HFA 160 mcg-4.5 mcg/actuation aerosol inhaler 2 puff INHALATION BID 06/03/19 tiotropium bromide 18 mcg capsule with inhalation device 1 cap INHALATION DAILY 06/03/19 losartan 100 mg-hydrochlorothiazide 12.5 mg tablet 1 tab PO DAILY #90 tab 06/23/19 Trelegy Ellipta 1 inh INHALATION DAILY 06/06/21 prednisone 40 mg PO DAILY #10 tab 06/09/21 Hospital Course Summary of Care Provided Minutes Spent on Discharge: 35 Hospital Course: Disposition: Patient to be discharged home, no home health care needs or additional therapies identified. 1) Acute on chronic COPD exacerbation. Patient reports continued improvement in his shortness of breath and cough from admission. Patient qualifies for home oxygen as his oxygen saturation was 87% on room air. Patient is not medically ready for discharge. Plan; continue bronchodilators, initiate prednisone 40 mg x 5 days, initiate home oxygen, follow-up with primary care provider within the next 2 weeks. 2) HTN Continue amlodipine and losartan. 3) mixed systolic/Diastoic CHF Not in acute exacerbation. Most recent echocardiogram was completed on 02/05 and demonstrated normal LV size with mild LVH and an ejection fraction of 45 to 50% with grade 1 diastolic dysfunction. Home medication regimen includes losartan- hydrochlorothiazide. 4) CKD stage III Creatinine currently 1.4, below 1 at baseline. Patient seen by Tc Olson PA-C, under the supervision of Dr. David. Physical Exam Narrative Patient is a 66-year-old male comfortably resting in bed, alert and orient x3. Patient reports improvement in shortness of breath from admission. Denies chest pain, shortness of breath, palpitations, hemoptysis, sputum production, fever, chills, N/V/D. Const alert, oriented x3 and no apparent distress HEENT normocephalic, head/scalp atraumatic and hearing grossly normal bilaterally Eyes PERRL, EOMs intact bilaterally and conjunctivae normal Neck no lymphadenopathy, supple and no JVD Resp normal respiratory effort and normal air movement Auscultation: diminished lung sounds Cardio regular rate, regular rhythm, no murmurs and no JVD GI normal to inspection, nondistended, normoactive bowel sounds, soft to palpation and non-tender Extremity normal to inspection, full ROM and no clubbing, cyanosis or edema Skin no rashes or lesions noted, no wounds and skin turgor normal Neuro CN's II-XII intact bilaterally Psych affect normal Weight / BMI Weight Weight: 194 lb 10.691 oz Body Mass Index (BMI) 33.4 ABG / Lab / Microbiology Data Result Diagrams: 06/09/21 06:09 06/09/21 06:09 Laboratory: Laboratory Results - last 24 hr 06/09/21 06:09: WBC 25.9 H, RBC 5.67, Hgb 16.3, Hct 51.9, MCV 91.5, MCH 28.7, MCHC 31.4 L, RDW Std Deviation 49.4 H, RDW Coeff of Kannan 14.9 H, Plt Count 363, MPV 9.7, Immature Gran % (Auto) 1.200 H, Neut % (Auto) 92.7 H, Lymph % (Auto) 3.2 L, [place] % (Auto) 2.6, Eos % (Auto) 0.0, Baso % (Auto) 0.3, Absolute Neuts (auto) 24.1 H, Absolute Lymphs (auto) 0.83, Nucleated RBC % 0, Differential Comment SCANNED 06/09/21 06:09: Sodium 137, Potassium 3.9, Chloride 103, Carbon Dioxide 29.0, Anion Gap 5, BUN 39 H, Creatinine 1.48 H, Estim Creat Clear Calc 42.22, Est GFR (MDRD) Af Amer 62, Est GFR (MDRD) Non-Af 51 L, BUN/Creatinine Ratio 26.4 H, Gl ucose 164 H, Calcium 9.3 Microbiology: Microbiology 06/06/21 15:20 Blood Culture (Wb) - Right Hand Blood Culture - Preliminary No growth in 48 hours. 06/06/21 14:39 Blood Culture (Wb) - Anticubital Right Blood Culture - Preliminary No growth in 48 hours. 06/06/21 14:38 Mucosa - Nose SARS-CoV-2 Antigen (Rapid) - Final D/C Instructions Discharge Diet: No restrictions Weight Bearing Status: Weight bearing as tolerated Call your doctor if you observe: Fever of 101 or Higher, Numbness or Tingling, Shortness of breath, Dizziness, Chest pain, Increased palpitations (irregular heartbeat) and Calf discomfort Please Follow Up With: Primary care provider When: Within the next two weeks. Meaningful Use Info Meaningful Use Diagnoses (Choose all that apply): None applicable Discharge Plan Admission Admit Date/Time: 06/07/21 09:10 Primary Reason for Your Visit: Shortness of breath Attending Provider: Artie David Primary Care Provider: Frank Tapia Instructions Patient Instructions: ED Chest Pain, Noncardiac Additional Instructions / Restrictions: Patient Problems: Altered Health Status related to Hospitalization Patient Goals: *Optimal Level of Health *Keep Appointments *Medication Compliance *Remain SafeAlso b Discharge Orders/Prescriptions Prescriptions: New prednisone 20 mg tablet 40 mg PO DAILY Qty: 10 RF: 0 Continued albuterol sulfate 90 mcg/actuation HFA aerosol inhaler 2 puff inhalation 4X/DAY PRN (Reason: Dyspnea/Wheezing/Sob) RF: 0 amlodipine 5 mg tablet 5 mg PO DAILY RF: 0 budesonide-formoterol 160-4.5 mcg/actuation HFA aerosol inhaler 2 puff INHALATION BID RF: 0 tiotropium bromide 18 mcg capsule, w/inhalation device 1 cap INHALATION DAILY RF: 0 Trelegy Ellipta 100-62.5-25 mcg blister with device 1 inh INHALATION DAILY RF: 0 losartan-hydrochlorothiazide 100-12.5 mg tablet 1 tab PO DAILY Qty: 90 RF: 3 Referrals / Follow Up: Frank Tapia MD [Primary Care Provider] - Within 2 Weeks Disposition Disposition (needs filled in before D/C Order can be placed): Home, Self Care Documented by User: Dr. Artie David DO 06/09/21 11:57 Providers Date of Admission: 06/07/21 Reason For Visit: COPD EXACERBATION Medications at Discharge Home Medications albuterol sulfate 90 mcg/actuation aerosol inhaler 2 puff INHALATION 4X/DAY PRN g 06/03/19 amlodipine 5 mg tablet 5 mg PO DAILY 06/03/19 budesonide-formoterol HFA 160 mcg-4.5 mcg/actuation aerosol inhaler 2 puff INHALATION BID 06/03/19 tiotropium bromide 18 mcg capsule with inhalation device 1 cap INHALATION DAILY 06/03/19 losartan 100 mg-hydrochlorothiazide 12.5 mg tablet 1 tab PO DAILY #90 tab 06/23/19 Trelegy Ellipta 1 inh INHALATION DAILY 06/06/21 prednisone 40 mg PO DAILY #10 tab 06/09/21 Hospital Course Operations None Procedures None Summary of Care Provided Minutes Spent on Discharge: 32 Hospital Course: 66-year-old male presents with acute exacerbation of COPD. Patient started methylprednisolone as well as bronchodilators. Patient still has improved but still requiring oxygen. Patient had acute hypoxic respiratory failure. Pulse ox was 87% on room air and then improved with oxygenation. Patient will require 4 L of oxygen continuously. Patient be given a prednisone burst at home and he states he has bronchodilators at home. Patient did agree and consent to receive the [employer] COVID-19 vaccine and did receive that during this hospitalization. Physical Exam Const alert Resp normal respiratory effort Auscultation: wheezes Cardio regular rate, regular rhythm and S1 normal heart sound ABG / Lab / Microbiology Data Result Diagrams: 06/09/21 06:09 06/09/21 06:09 Discharge Plan Admission Admit Date/Time: 06/07/21 09:10 Primary Reason for Your Visit: Shortness of breath Attending Provider: Artie David Primary Care Provider: Frank Tapia Instructions Patient Instructions: ED Chest Pain, Noncardiac Additional Instructions / Restrictions: Patient Problems: Altered Health Status related to Hospitalization Patient Goals: *Optimal Level of Health *Keep Appointments *Medication Compliance *Remain SafeAlso b Discharge Orders/Prescriptions Prescriptions: New prednisone 20 mg tablet 40 mg PO DAILY Qty: 10 RF: 0 Continued albuterol sulfate 90 mcg/actuation HFA aerosol inhaler 2 puff inhalation 4X/DAY PRN (Reason: Dyspnea/Wheezing/Sob) RF: 0 amlodipine 5 mg tablet 5 mg PO DAILY RF: 0 budesonide-formoterol 160-4.5 mcg/actuation HFA aerosol inhaler 2 puff INHALATION BID RF: 0 tiotropium bromide 18 mcg capsule, w/inhalation device 1 cap INHALATION DAILY RF: 0 Trelegy Ellipta 100-62.5-25 mcg blister with device 1 inh INHALATION DAILY RF: 0 losartan-hydrochlorothiazide 100-12.5 mg tablet 1 tab PO DAILY Qty: 90 RF: 3 Referrals / Follow Up: Frank Tapia MD [Primary Care Provider] - Within 2 Weeks Disposition Disposition (needs filled in before D/C Order can be placed): Home, Self Care Charges/Coding Visit Charges Inpatient E&M: 97886 Disch Hosp
--- NOTE | 2021-06-09 12:22 | CM.ED ---
SW Note Referral Source: PCU SW Referral Reason: Advanced Directives SW met with patient. Patient advised he is being discharged. He indicated that his daughter will review the Advanced Directives with him. He reports no additional issues or needs. Plan: Provided him with Advanced Directive information Kristie ALCALA
--- NOTE | 2021-06-11 14:19 | CASEMGMT ---
TIM CUTLER Discharge Follow Up Phone Call: ERROL: Katharine Strata:3 Call Date: 06/11/21 Discharge Date: 06/09/21 Time of Call:1419 Duration:<1 min Admitting Dx:COPD TIM CUTLER attempted to complete follow up phone call after recent hospitalization. Left message on identified voicemail regarding reason for the call and call back number.
== END 2021-06-09 12:34 | disposition home or self-care (01) | DRG 190 ==
LOC: ED 16:32 → PCU 16:34
PROVIDERS: Physician Assistant; Emergency Provider Emergency Medicine; PCP Family Medicine
DX: J44.1 Chronic obstructive pulmonary disease with (acute) exacerbation (principal); J96.01 Acute respiratory failure with hypoxia; I13.0 Hypertensive heart and chronic kidney disease with heart failure and stage 1 through stage 4 chronic kidney disease, or unspecified chronic kidney disease; I50.40 Unspecified combined systolic (congestive) and diastolic (congestive) heart failure; E11.22 Type 2 diabetes mellitus with diabetic chronic kidney disease; N18.30 Chronic kidney disease, stage 3 unspecified; F17.210 Nicotine dependence, cigarettes, uncomplicated; Z23 Encounter for immunization; Z28.3 Underimmunization status; I25.10 Atherosclerotic heart disease of native coronary artery without angina pectoris; Z20.822 Contact with and (suspected) exposure to COVID-19; Z79.899 Other long term (current) drug therapy; Z82.49 Family history of ischemic heart disease and other diseases of the circulatory system; Z83.3 Family history of diabetes mellitus; Z90.49 Acquired absence of other specified parts of digestive tract
CPT/HCPCS: 0031A; 36415; 71045; 80048; 83605; 84484; 85025; 87040; 87426; 91303; 93005; 94640; 94667; 94668; 99251; 99284; 99406; A4216; G0463

== ENCOUNTER 2021-07-02 14:35 | Emergency (ER) | payer MEDICARE, MEDICAID, SELFPAY ==
[2021-07-02 14:36] VITALS: BP 104/72; PULSE 105; RESP 20; TEMP 36.3; O2SAT 92; BMI 32.9
--- NOTE | 2021-07-02 15:34 | RAD_ITS ---
STUDY: X-RAY - ABDOMEN/PELVIS REASON FOR EXAM: Male, 66 years old. CONSTIPATION TECHNIQUE: Single AP view of the abdomen / pelvis. COMPARISON: None. FINDINGS: Normal visualized lung bases. There is an abundance of fecal material throughout the colon. The visualized liver, spleen and kidneys are grossly normal in size and morphology. Normal soft tissue structures. There are diffuse degenerative changes of the visualized lumbar spine. RAD/Abdomen Single View IMPRESSION: Large amount of fecal material is seen in the colon. Electronically Signed: Chalo Bonilla MD at 15:53 EDT , Service support ,
[2021-07-02 16:00] LABS: Absolute Lymphocyte Count 1.85 X10^3/uL (0.83-4.51); Absolute Neutrophil Count 9.2 X10^3/uL (2.0-7.7); Basophil# 0.08 X10^3/uL; Basophil% 0.6 % (0-1); Eosinophil# 0.55 X10^3/uL; Eosinophils% 4.2 % (0-5); Hematocrit 50.2 % (40-54); Hemoglobin 15.7 g/dL (13.0-16.5); Lymphocyte # 1.85 X10^3/ul (0.83-4.51); Lymphocyte % 14.3 % (19-41); Mean Corp Hgb Conc 31.3 g/dL (32-36); Mean Corpuscular Hgb 28.9 pg (27.0-32.0); Mean Corpuscular Volume 92.4 fL (80-94); Mean Platelet Vol. 10.3 fl (6.2-12.0); Monocyte# 1.21 X10^3/uL; Monocyte% 9.3 % (0-10); NRBC Flagged by Analyzer 0 % (0-5); Neutrophil # 9.17 X10^3/uL (2.7-7.7); Neutrophil % 70.8 % (47-70); Platelet Count 492 K/mm3 (150-450); RBC Distribution Width CV 14.4 % (11.6-14.6); RBC Distribution Width SD 48.8 fl (35.1-43.9); Red Blood Count 5.43 M/mm3 (4.6-6.2)
[2021-07-02 16:03] LABS: Anion Gap 7 (5-15); BUN 38 mg/dL (7-18); BUN/Creat Ratio 24.5 RATIO (10-20); Calcium,Total 9.7 mg/dL (8.5-10.1); Chloride 100 mmol/L (98-107); Creatinine, Serum 1.55 mg/dL (0.70-1.30); EST Glomerular Filtration Rate 48 mL/min (>60); Est Glom Filt Rate - Afr Amer 58 mL/min (>60); Estimated Creatinine Clearance 40.32 ml/min; Glucose 101 mg/dL (74-106); Potassium 4.2 mmol/L (3.5-5.1); Sodium Level 137 mmol/L (136-145)
--- NOTE | 2021-07-02 18:30 | ED.VIS.GI ---
HPI HPI - GI History of Present Illness Chief Complaint: Abd Pain Informant: patient Abdominal Pain/Flank Pain Onset: Month(s) (1.5) Context: Gradual Onset Timing: Intermittent Quality: Aching Location: LLQ Current Severity: Moderate Maximum Severity: Moderate Worsened by: - (just before needing to have BM) Relieved by: Nothing Nausea/Vomiting/Emesis GI Symptom: Negative for Nausea and Vomiting Diarrhea/Melena/Hematochezia GI Symptom: Negative for Diarrhea, Melena and Hematochezia Narrative Narrative: Patient states he cannot remember when the last time he had a bowel movement was, probably the beginning of May which was 1.5 months ago, which is how long he has been having left lower quadrant intermittent abdominal pain. His doctor told him to use MiraLAX, he has been doing his daily for 5 days with no effect although it has maybe made the pain a little worse when it is there. No nausea or vomiting. Prior appendectomy no other abdominal surgeries. He was admitted for COPD several weeks ago, he states that is doing well now, he is on 4 L of oxygen at home, he states he told somebody in the hospital about his pain but nobody did anything. Additionally, patient states his scrotum has been swollen for over a year. He was told maybe he has a hernia. He has never seen a surgeon for this. [facility] Medical History (Updated 07/02/21 @ 21:[address] Emerson Guzman MD) Acute diverticulitis Chest pain CHF (congestive heart failure) CKD (chronic kidney disease), stage III Colitis, acute COPD (chronic obstructive pulmonary disease) COPD with exacerbation Cough Diverticulitis large intestine Diverticulitis of large intestine with abscess Essential hypertension Sepsis Shortness of breath Small bowel obstruction Syncope Tobacco use Type 2 diabetes mellitus without complication Home Medications albuterol sulfate 90 mcg/actuation aerosol inhaler 2 puff INHALATION 4X/DAY PRN g 06/03/19 [History Last Taken 06/06/21] amlodipine 5 mg tablet 5 mg PO DAILY 06/03/19 [History Last Taken 06/05/21] budesonide-formoterol HFA 160 mcg-4.5 mcg/actuation aerosol inhaler 2 puff INHALATION BID 06/03/19 [History Last Taken 06/06/21] tiotropium bromide 18 mcg capsule with inhalation device 1 cap INHALATION DAILY 06/03/19 [History Last Taken 06/06/21] losartan 100 mg-hydrochlorothiazide 12.5 mg tablet 1 tab PO DAILY #90 tab 06/23/19 [Rx Last Taken 06/06/21] Trelegy Ellipta 1 inh INHALATION DAILY 06/06/21 [History Last Taken Unknown] prednisone 40 mg PO DAILY #10 tab 06/09/21 [Rx Last Taken Unknown] Allergy/AdvReac Type Severity Reaction Status Date / Time lisinopril AdvReac Intermediate cough Verified 06/06/21 14:28 Family History Mother Diabetes Father Diabetes Brother CAD (coronary artery disease) stents Brother , age 58 CAD (coronary artery disease) stents Sister Diabetes Surgical History History of appendectomy Social History Smoking Status: Light Smoker (<10/day) alcohol intake: never substance use type: does not use caffeine: Yes Type: coffee Number of servings: 1 ROS ROS ED Constitutional Constitutional ED: Denies chills or fever(s) Eyes Eyes: Denies change in vision or diplopia ENT ENT ED: Denies rhinorrhea or sore throat Cardiovascular Cardiovascular: Denies chest pain or palpitations Respiratory/Chest Respiratory/Chest: Reports cough and other Details: Chronic dyspnea with exertion no worse than usual Gastrointestinal Gastrointestinal: Reports as per HPI, abdominal pain and constipation; Denies diarrhea, nausea or vomiting Genitourinary Genitourinary ED: Reports scrotal swelling; Denies dysuria or hematuria Musculoskeletal Musculoskeletal: Denies back pain or neck pain Integumentary Denies abscess or rash Neurologic Neurologic: Denies headache(s), paresthesias or weakness Psychiatric Psychiatric: Denies anxiety or suicidal thoughts EXAM Physical Exam Const Vital Signs: 07/02/21 14:36 Temperature 97.3 F L Temperature Source Temporal Pulse Rate 105 H Respiratory Rate 20 H Blood Pressure 104/72 Blood Pressure Mean 82 Pulse Ox 92 Oxygen Delivery Method Nasal Cannula Oxygen Flow Rate (L/min) 4 Positive well nourished and well developed General Appearance ED: well developed and NAD HEENT Reports moist mucous membranes normocephalic and atraumatic Eyes PERRL and EOMs intact bilaterally Neck full ROM and supple Resp normal respiratory effort and clear to auscultation bilaterally Cardio regular rate, regular rhythm and no murmurs GI GI Narrative: Mildly tender left lower quadrant. No guarding or rebound. Abdominal obesity/distention Auscultation: normoactive bowel sounds Palpation: soft Rectal Exam: visual inspection normal, normal sphincter tone, fecal impaction and other Other Details: Brown nonmelanotic nonbloody stool present. Attempted to loosen hard fecal impaction. ; Negative for anal fissure Narrative: Area edematous nontender scrotum Back/Spine no CVA tenderness General Back: other FROM Extremity normal to inspection General Extremety ED: Negative for edema, pulses abnormal or tenderness General Extremity: Negative for edema or pulses abnormal Neuro oriented x3, CN's II-XII intact bilaterally, no sensory deficits noted and gait normal Sensorium / Orientation: awake and alert Motor Exam: strength 5/5 throughout Skin no rashes or lesions noted and no wounds MDM MDM MDM Narrative Medical decision making narrative: Patient is just mildly tender in the left lower quadrant and I do not think he is having diverticulitis. We did 3 soapsuds enemas. He was not able to hold much of the fluid in at all. He had very small amount of stool come out mostly water, his pain was a little better but he really did not have a great bowel movement which I think will make him feel better. Patient always has a leukocytosis when he is checked and this is the lowest it has been at 13. Stable renal function. His fecal impaction is barely palpable and too far up for me to pull any out with my finger. At this time I think it is most appropriate to send him home with a bottle of magnesium citrate to try to help with this, again the symptoms are stable for 1.5 months and I do not think he needs any emergent IV contrasted CT scan at this time. Given magnesium citrate advised glycerin suppositories and close outpatient follow-up. He will be referred to a surgeon with regards to the right inguinal hernia that he has had since 2017 that now appears to be down into his scrotum clinically. Lab Data Attestation: I reviewed the patient's lab results. Labs: Laboratory Results - last 24 hr 07/02/21 07/02/21 15:32 15:32 WBC 13.0 H RBC 5.43 Hgb 15.7 Hct 50.2 MCV 92.4 MCH 28.9 MCHC 31.3 L RDW Std Deviation 48.8 H RDW Coeff of Kannan 14.4 Plt Count 492 H MPV 10.3 Immature Gran % (Auto) 0.800 Neut % (Auto) 70.8 H Lymph % (Auto) 14.3 L Deuel % (Auto) 9.3 Eos % (Auto) 4.2 Baso % (Auto) 0.6 Absolute Neuts (auto) 9.2 H Absolute Lymphs (auto) 1.85 Nucleated RBC % 0 Sodium 137 Potassium 4.2 Chloride 100 Carbon Dioxide 30.0 Anion Gap 7 BUN 38 H Creatinine 1.55 H Estim Creat Clear Calc 40.32 Est GFR (MDRD) Af Amer 58 L Est GFR (MDRD) Non-Af 48 L BUN/Creatinine Ratio 24.5 H Glucose 101 Calcium 9.7 Radiography Diagnostic Testing: Radiology Impression KUB X-Ray 07/02/21 15:34 IMPRESSION: Large amount of fecal material is seen in the colon. Electronically Signed: Chalo Bonilla MD at 15:53 EDT , Service support , Discharge Plan Triage Chief Complaint: Abd Pain ED Provider: Emerson Guzman Dx/Rx/DC Orders Clinical Impression: Constipation, Abdominal pain, left lower quadrant Instructions: ED Constipation (Adult) Prescriptions: No Action albuterol sulfate 90 mcg/actuation HFA aerosol inhaler 2 puff inhalation 4X/DAY PRN (Reason: Dyspnea/Wheezing/Sob) RF: 0 amlodipine 5 mg tablet 5 mg PO DAILY RF: 0 budesonide-formoterol 160-4.5 mcg/actuation HFA aerosol inhaler 2 puff INHALATION BID RF: 0 tiotropium bromide 18 mcg capsule, w/inhalation device 1 cap INHALATION DAILY RF: 0 Trelegy Ellipta 100-62.5-25 mcg blister with device 1 inh INHALATION DAILY RF: 0 prednisone 20 mg tablet 40 mg PO DAILY Qty: 10 RF: 0 losartan-hydrochlorothiazide 100-12.5 mg tablet 1 tab PO DAILY Qty: 90 RF: 3 Primary Care Provider: Frank Tapia Referrals: Frank Tapia MD [Primary Care Provider] - 1-2 Days if not improving Activity Restrictions/Additional Instructions: Use glycerin suppositories. Use magnesium citrate again in 24 hours if the first half of the bottle does not help. Drink the bottle contents and states with plenty of fluids, anything except for diuretic such as caffeine related fluids or alcohol. Disposition Disposition: Home, Self Care
[2021-07-02] MEDS: Dicyclomine 10 MG Capsule 20 MG PO (19:32)
[2021-07-02 21:27] VITALS: BP 102/60; PULSE 102; RESP 20; O2SAT 97
== END 2021-07-02 21:28 | disposition home or self-care (01) ==
PROVIDERS: Emergency Provider Emergency Medicine; PCP Family Medicine
DX: K59.00 Constipation, unspecified (principal); R10.32 Left lower quadrant pain; E11.22 Type 2 diabetes mellitus with diabetic chronic kidney disease; I13.0 Hypertensive heart and chronic kidney disease with heart failure and stage 1 through stage 4 chronic kidney disease, or unspecified chronic kidney disease; I50.9 Heart failure, unspecified; J44.1 Chronic obstructive pulmonary disease with (acute) exacerbation; N18.30 Chronic kidney disease, stage 3 unspecified; F17.200 Nicotine dependence, unspecified, uncomplicated; Z79.52 Long term (current) use of systemic steroids
CPT/HCPCS: 74018; 80048; 85025; 99285; A4216

== ENCOUNTER 2021-07-06 09:06 | Emergency (ER) | payer MEDICARE, MEDICAID, SELFPAY ==
[2021-07-06 09:08] VITALS: BP 129/75; PULSE 89; RESP 16; TEMP 36.8; O2SAT 96; BMI 32.2
--- NOTE | 2021-07-06 09:15 | CT_ITS ---
STUDY: CT ABDOMEN AND PELVIS WITH CONTRAST REASON FOR EXAM: Male, 66 years old. 2 month history of diffuse abdominal pain. RADIATION DOSAGE (If Supplied By Facility): CTDIvol = ( 13.23 ) mGy, DLP = ( 1071.08 ) mGycm TECHNIQUE: Transaxial images were obtained from the dome of the diaphragm to the symphysis pubis with oral contrast. Oral and amp; IV Gastrografin and amp; 75mL Isovue-300 was administered. Sagittal and coronal images were reconstructed. Individualized dose optimization techniques were used for this CT. COMPARISON: Comparison is made with prior examination dated 08/26/2017. FINDINGS: Mild increased markings with confluence in the lingular segment of the left upper lobe. Mild increased markings at the lung bases suggestive of bibasilar atelectasis. The visualized portions of the heart are within normal limits. There is decreased attenuation of the liver consistent with steatosis. Normal gallbladder and extrahepatic biliary system. Normal spleen. Normal pancreas. Normal bilateral adrenal glands. Normal right kidney. Normal left kidney. There is a small hiatal hernia. Normal small intestine. Colonic distention due to large amount of fecal material. The patient is status post appendectomy. Normal abdominal aorta. Normal inferior vena cava. There is borderline retroperitoneal lymphadenopathy with enlarged nodes no greater than 10mm in the short axis diameter. Normal urinary bladder. There is evidence of a large right scrotal hernia containing nondilated small bowel loops. The prostate is enlarged. The prostate measures 4.3 cm x 5.5 cm. This causes indentation of the bladder base. Normal abdominal wall. There are diffuse degenerative changes of the visualized lumbar spine. CT/Abdomen/Pelvis WITH Contrast IMPRESSION: Colonic distention due to large amount of fecal material within the colon. Large right scrotal hernia containing nondilated small bowel. Fatty infiltration of the liver. Electronically Signed: Chalo Bonilla MD at 11:38 EDT , Service support ,
--- NOTE | 2021-07-06 09:16 | EX.ED.DYSGE1 ---
HPI History of Present Illness Chief Complaint: Constipation Narrative Narrative: Patient was seen 4 days ago for constipation. He was found to have large stool burden, although the prior physician was unable to disimpact him. He was sent home with medications but has not had any BM since then he arrives with abdominal pain. He has abdominal cramping. He has no fevers or chills. He has chronic shortness of breath secondary to COPD, he is on home oxygen, his oxygen requirements have not changed and he has no respiratory complaints at this time. He has no urinary symptoms, no testicular pain. [facility] Medical History (Updated 07/06/21 @ 14:[address] Ke Spear MD) Acute diverticulitis Chest pain CHF (congestive heart failure) CKD (chronic kidney disease), stage III Colitis, acute COPD (chronic obstructive pulmonary disease) COPD with exacerbation Cough Diverticulitis large intestine Diverticulitis of large intestine with abscess Essential hypertension Sepsis Shortness of breath Small bowel obstruction Syncope Tobacco use Type 2 diabetes mellitus without complication Home Medications albuterol sulfate 90 mcg/actuation aerosol inhaler 2 puff INHALATION 4X/DAY PRN g 06/03/19 [History Last Taken 06/06/21] amlodipine 5 mg tablet 5 mg PO DAILY 06/03/19 [History Last Taken 06/05/21] budesonide-formoterol HFA 160 mcg-4.5 mcg/actuation aerosol inhaler 2 puff INHALATION BID 06/03/19 [History Last Taken 06/06/21] tiotropium bromide 18 mcg capsule with inhalation device 1 cap INHALATION DAILY 06/03/19 [History Last Taken 06/06/21] losartan 100 mg-hydrochlorothiazide 12.5 mg tablet 1 tab PO DAILY #90 tab 06/23/19 [Rx Last Taken 06/06/21] Trelegy Ellipta 1 inh INHALATION DAILY 06/06/21 [History Last Taken Unknown] prednisone 40 mg PO DAILY #10 tab 06/09/21 [Rx Last Taken Unknown] Allergy/AdvReac Type Severity Reaction Status Date / Time lisinopril AdvReac Intermediate cough Verified 06/06/21 14:28 Family History Mother Diabetes Father Diabetes Brother CAD (coronary artery disease) stents Brother , age 58 CAD (coronary artery disease) stents Sister Diabetes Surgical History History of appendectomy Social History Smoking Status: Light Smoker (<10/day) alcohol intake: never substance use type: does not use caffeine: Yes Type: coffee Number of servings: 1 ROS ROS ED ROS Narrative Past medical history: Reviewed, significant for CHF, chronic renal disease, COPD on home oxygen Medications: Reviewed Social history: Noncontributory Review of systems: All systems negative except as indicated General: No fever Eyes: No visual changes ENT: No upper airway congestion, normal voice Neck: No neck pain Cardiovascular: No chest pain Respiratory: No shortness of breath or cough Gastrointestinal: Abdominal pain and constipation as in HPI. No vomiting. Genitourinary: No dysuria Musculoskeletal: Denies myalgias no difficulty with ambulation Skin: No rash Neurological: No memory loss, confusion or any focal weakness Psych: No recent behavioral changes Hematologic: No easy bleeding or easy bruising EXAM Physical Exam Narrative Exam Narrative: Physical exam General: Patient appears uncomfortable. Head: Normocephalic, Atraumatic Eyes: Conjunctiva not pale ENT: Moist mucous membranes Neck: Supple, Nontender, No lymphadenopathy Cardiovascular: Regular rate, Regular rhythm Respiratory: Coarse bilateral breath sounds, scant wheezing, he is not in any respiratory distress he is speaking in full sentences. Abdomen: Abdomen is somewhat distended, it is tender throughout but mostly in the left lower quadrant there is no guarding or rebound. He does have bowel sounds on auscultation. Hernia is present it is large and nontender, it is too large to reduce. Back: Nontender, Normal Inspection. Negative for: CVA tenderness Extremities: Nontender, No edema Skin: Normal color, No rash Neurological: Alert, Normal Strength, Normal Sensation Psychological: Normal affect Const Vital Signs: 07/06/21 09:08 07/06/21 11:43 07/06/21 13:32 Temperature 98.3 F Temperature Source Oral Pulse Rate 89 71 89 Respiratory Rate 16 19 H 17 Blood Pressure 129/75 H 124/69 H 120/70 Blood Pressure Mean 93 87 86 Pulse Ox 96 95 96 Oxygen Delivery Method Nasal Cannula Nasal Cannula Room Air Oxygen Flow Rate (L/min) 4 4 MDM MDM MDM Narrative Medical decision making narrative: CT shows constipation with colonic dilation, enema and lactulose was given he did not have results and stool movement I will send him home with Abigail, I did discuss the patient with Dr. Gu who is willing to see him outpatient if his constipation does not resolve. Lab Data Labs: Laboratory Results - last 24 hr 07/06/21 07/06/21 09:00 09:00 WBC 18.7 H RBC 5.10 Hgb 14.8 Hct 46.4 MCV 91.0 MCH 29.0 MCHC 31.9 L RDW Std Deviation 47.8 H RDW Coeff of Kannan 14.3 Plt Count 542 H MPV 10.4 Immature Gran % (Auto) 1.100 H Neut % (Auto) 80.4 H Lymph % (Auto) 8.0 L Mer[place] % (Auto) 8.8 Eos % (Auto) 1.1 Baso % (Auto) 0.6 Absolute Neuts (auto) 15.0 H Absolute Lymphs (auto) 1.50 Nucleated RBC % 0 [address] Path Review May foll Sodium 133 L Potassium 4.3 Chloride 94 L Carbon Dioxide 33.0 H Anion Gap 6 BUN 56 H Creatinine 1.95 H Estim Creat Clear Calc 32.05 Est GFR (MDRD) Af Amer 45 L Est GFR (MDRD) Non-Af 37 L BUN/Creatinine Ratio 28.7 H Glucose 132 H Calcium 9.3 Total Bilirubin 0.50 AST 17 ALT 36 Alkaline Phosphatase 90 Total Protein 8.1 Albumin 2.9 L Globulin 5.2 H Albumin/Globulin Ratio 0.6 L Radiography Diagnostic Testing: Radiology Impression Abdomen/Pelvis CT 07/06/21 09:15 IMPRESSION: Colonic distention due to large amount of fecal material within the colon. Large right scrotal hernia containing nondilated small bowel. Fatty infiltration of the liver. Electronically Signed: Chalo Bonilla MD at 11:38 EDT , Service support , Discharge Plan Triage Chief Complaint: Constipation ED Provider: Ke Spear Dx/Rx/DC Orders Clinical Impression: Constipation, Hernia Instructions: ED Constipation (Adult) Prescriptions: No Action albuterol sulfate 90 mcg/actuation HFA aerosol inhaler 2 puff inhalation 4X/DAY PRN (Reason: Dyspnea/Wheezing/Sob) RF: 0 amlodipine 5 mg tablet 5 mg PO DAILY RF: 0 budesonide-formoterol 160-4.5 mcg/actuation HFA aerosol inhaler 2 puff INHALATION BID RF: 0 tiotropium bromide 18 mcg capsule, w/inhalation device 1 cap INHALATION DAILY RF: 0 Trelegy Ellipta 100-62.5-25 mcg blister with device 1 inh INHALATION DAILY RF: 0 prednisone 20 mg tablet 40 mg PO DAILY Qty: 10 RF: 0 losartan-hydrochlorothiazide 100-12.5 mg tablet 1 tab PO DAILY Qty: 90 RF: 3 Primary Care Provider: Frank Tapia Referrals: Frank Tapia MD [Primary Care Provider] - 2 Days Carlos Gu MD [STAFF PHYSICIAN] - 3-5 Days Disposition Disposition: Home, Self Care
[2021-07-06 09:25] LABS: Basophil# 0.11 X10^3/uL; Basophil% 0.6 % (0-1); Eosinophils% 1.1 % (0-5); Hematocrit 46.4 % (40-54); Hemoglobin 14.8 g/dL (13.0-16.5); Mean Corp Hgb Conc 31.9 g/dL (32-36); Mean Platelet Vol. 10.4 fl (6.2-12.0); Monocyte# 1.64 X10^3/uL; Monocyte% 8.8 % (0-10); NRBC Flagged by Analyzer 0 % (0-5); Neutrophil # 15.04 X10^3/uL (2.7-7.7); Neutrophil % 80.4 % (47-70); POSITIVE DIFFERENTIAL YES; Platelet Count 542 K/mm3 (150-450); RBC Distribution Width CV 14.3 % (11.6-14.6); RBC Distribution Width SD 47.8 fl (35.1-43.9); White Blood Count 18.7 K/mm3 (4.4-11.0)
[2021-07-06 09:28] LABS: Differential Indicated SCAN CRITERIA MET
[2021-07-06 09:42] LABS: ALB/GLOB Ratio 0.6 RATIO (0.9-2.4); AST(SGOT) 17 U/L (15-37); Alanine Aminotransfer ALT/SGPT 36 U/L (16-61); Albumin, Serum 2.9 g/dL (3.2-5.0); Alkaline Phosphatase 90 U/L (45-117); Anion Gap 6 (5-15); BUN 56 mg/dL (7-18); BUN/Creat Ratio 28.7 RATIO (10-20); Calcium,Total 9.3 mg/dL (8.5-10.1); Chloride 94 mmol/L (98-107); Creatinine, Serum 1.95 mg/dL (0.70-1.30); EST Glomerular Filtration Rate 37 mL/min (>60); Est Glom Filt Rate - Afr Amer 45 mL/min (>60); Estimated Creatinine Clearance 32.05 ml/min; Globulin 5.2 g/dL (2.2-4.2); Glucose 132 mg/dL (74-106); Potassium 4.3 mmol/L (3.5-5.1); Protein, Total 8.1 g/dL (6.4-8.2); Sodium Level 133 mmol/L (136-145)
[2021-07-06 11:43] VITALS: BP 124/69; PULSE 71; RESP 19; O2SAT 95
[2021-07-06] MEDS: Ondansetron 4 MG/2 ML Vial IV (12:55)
[2021-07-06 13:32] VITALS: BP 120/70; PULSE 89; RESP 17; O2SAT 96
[2021-07-06] MEDS: Lactulose 20 GM/30 ML UDC PO (13:52)
[2021-07-06] MEDS: Electrolyte Solution/Peg's 4000 ML PO (15:15)
[2021-07-09 12:37] LABS: Pathologist Review Reviewed
== END 2021-07-06 15:08 | disposition home or self-care (01) ==
PROVIDERS: Emergency Provider Emergency Medicine; PCP Family Medicine
DX: K59.00 Constipation, unspecified (principal); K40.90 Unilateral inguinal hernia, without obstruction or gangrene, not specified as recurrent; E11.22 Type 2 diabetes mellitus with diabetic chronic kidney disease; I13.0 Hypertensive heart and chronic kidney disease with heart failure and stage 1 through stage 4 chronic kidney disease, or unspecified chronic kidney disease; I50.9 Heart failure, unspecified; K52.9 Noninfective gastroenteritis and colitis, unspecified; K76.0 Fatty (change of) liver, not elsewhere classified; N18.30 Chronic kidney disease, stage 3 unspecified; Z79.52 Long term (current) use of systemic steroids; F17.200 Nicotine dependence, unspecified, uncomplicated; Z99.81 Dependence on supplemental oxygen; J44.9 Chronic obstructive pulmonary disease, unspecified
CPT/HCPCS: 36415; 74177; 80053; 85025; 96374; 99285; Q9967; A4216; J2405

== ENCOUNTER 2021-07-06 20:41 | Inpatient (IN) | payer MEDICARE, MEDICAID, SELFPAY ==
[2021-07-06 20:41] VITALS: BP 135/89; PULSE 90; RESP 24; TEMP 36; O2SAT 94; BMI 31.8
[2021-07-06 20:45] VITALS: BP 135/89; PULSE 90; RESP 24; TEMP 36; O2SAT 94
--- NOTE | 2021-07-06 21:02 | EDS_ITS ---
HPI HPI - GI History of Present Illness Chief Complaint: Abd Pain Narrative Narrative: Patient with past medical history of COPD, wears oxygen at home, has a return visit to the emergency department from earlier today. He was discharged home and states he has had more vomiting without any blood in his emesis. His abdomen is distended secondary to constipation. In review of his chart, he had been seen 4 days earlier and was given multiple enemas without success. He states he has not had a bowel movement since May, over 17 days ago. He is still passing gas. He is experiencing nausea and vomiting but denies any fevers or chills. He returns to the emergency department still not having a bowel movement. [facility] Medical History Acute diverticulitis Chest pain CHF (congestive heart failure) CKD (chronic kidney disease), stage III Colitis, acute COPD (chronic obstructive pulmonary disease) COPD with exacerbation Cough Diverticulitis large intestine Diverticulitis of large intestine with abscess Essential hypertension Sepsis Shortness of breath Small bowel obstruction Syncope Tobacco use Type 2 diabetes mellitus without complication Home Medications albuterol sulfate 90 mcg/actuation aerosol inhaler 2 puff INHALATION 4X/DAY PRN g 06/03/19 [History Last Taken 06/06/21] amlodipine 5 mg tablet 5 mg PO DAILY 06/03/19 [History Last Taken 06/05/21] budesonide-formoterol HFA 160 mcg-4.5 mcg/actuation aerosol inhaler 2 puff INHALATION BID 06/03/19 [History Last Taken 06/06/21] tiotropium bromide 18 mcg capsule with inhalation device 1 cap INHALATION DAILY 06/03/19 [History Last Taken 06/06/21] losartan 100 mg-hydrochlorothiazide 12.5 mg tablet 1 tab PO DAILY #90 tab 06/23/19 [Rx Last Taken 06/06/21] Trelegy Ellipta 1 inh INHALATION DAILY 06/06/21 [History Last Taken Unknown] prednisone 40 mg PO DAILY #10 tab 06/09/21 [Rx Last Taken Unknown] Allergy/AdvReac Type Severity Reaction Status Date / Time lisinopril AdvReac Intermediate cough Verified 06/06/21 14:28 Family History Mother Diabetes Father Diabetes Brother CAD (coronary artery disease) stents Brother , age 58 CAD (coronary artery disease) stents Sister Diabetes Surgical History History of appendectomy Social History Smoking Status: Light Smoker (<10/day) alcohol intake: never substance use type: does not use caffeine: Yes Type: coffee Number of servings: 1 ROS ROS ED ROS Narrative Constitutional: No fever, no chills. HEENT: No sore throat. No neck pain. No loss of vision. No rhinorrhea. Cardiovascular: No chest pain. No palpitations. No pedal edema. Respiratory: No cough, no shortness of breath. Abdominal: Diffuse abdominal distention and abdominal pain. Positive nausea. Positive vomiting. Constipation. Genitourinary: No dysuria. No hematuria. Musculoskeletal: No myalgias. No arthralgias. Neurologic: No headaches. No dizziness. No lightheadedness. Skin: No rash. No change in color. Psychiatric: No depression. No anxiety. EXAM Physical Exam Narrative Exam Narrative: Afebrile. Vital signs noted. HEENT: Normocephalic. Atraumatic. PERRL, EOMI. Neck soft and supple. No point tenderness or step off. Cardiovascular: Regular rate and rhythm. No murmurs, rubs, or gallops appreciated. Respiratory: No tachypnea. Lungs clear to auscultation bilaterally. Gastrointestinal: Abdomen soft, distended, minimal diffuse tenderness, with decreased bowel sounds. No rebound or guarding. Neurological: Awake. Alert. Nonfocal, nonlateralizing. Skin: No rash. Normal color. No pallor. Musculoskeletal: No pedal edema. Full range of motion extremities. Const Vital Signs: 07/06/21 20:41 07/06/21 20:45 Temperature 96.8 F L 96.8 F L Temperature Source Temporal Temporal Pulse Rate 90 90 Respiratory Rate 24 H 24 H Blood Pressure 135/89 H 135/89 H Blood Pressure Mean 104 104 Pulse Ox 94 94 Oxygen Delivery Method Nasal Cannula Nasal Cannula Oxygen Flow Rate (L/min) 4 4 MDM MDM MDM Narrative Medical decision making narrative: I reviewed his records from today. He has an elevated white count of 18,000. His CT of the abdomen and pelvis shows a large colonic stool burden but no evidence of obstruction. I will repeat his laboratories and administer IV fluids along with Zofran. They were unable to disimpact him previously. He had been given medications reportedly. His leukocytosis has increased to 23,000 from 18,000. Sodium has decreased from 133 to 131, and his creatinine has risen to 2.94 from 1.93, almost a full point. He was administered IV fluids, and Zofran. I reviewed his CT scan and there was no evidence of obstruction, just a large colonic stool burden. Given his intractable nausea and vomiting, dehydration, acute on chronic kidney injury, constipation and leukocytosis, the patient was discussed with the hospitalist, Dr. Cross, and he will be placed on medical surgical observation. Patient is in stable condition. Lab Data Attestation: I reviewed the patient's lab results. Labs: Laboratory Results - last 24 hr 07/06/21 07/06/21 21:13 21:13 WBC 23.0 H RBC 5.02 Hgb 14.6 Hct 45.5 MCV 90.6 MCH 29.1 MCHC 32.1 RDW Std Deviation 48.6 H RDW Coeff of Kannan 14.5 Plt Count 595 H MPV 10.2 Immature Gran % (Auto) 1.700 H Neut % (Auto) 87.9 H Lymph % (Auto) 3.6 L Brewster % (Auto) 6.1 Eos % (Auto) 0.0 Baso % (Auto) 0.7 Absolute Neuts (auto) 20.2 H Absolute Lymphs (auto) 0.82 L Nucleated RBC % 0 Differential Comment SEE COMMENT Platelet Estimate MKD INC Plt Morphology Comment LARGE RBC Morphology N CHROM Anisocytosis RARE Macrocytosis RARE Sodium 131 L Potassium 4.7 Chloride 88 L Carbon Dioxide 31.0 Anion Gap 12 BUN 66 H Creatinine 2.94 H Estim Creat Clear Calc 21.25 Est GFR (MDRD) Af Amer 28 L Est GFR (MDRD) Non-Af 23 L BUN/Creatinine Ratio 22.4 H Glucose 196 H Calcium 9.4 Total Bilirubin 0.70 AST 21 ALT 40 Alkaline Phosphatase 92 Total Protein 8.0 Albumin 2.8 L Globulin 5.2 H Albumin/Globulin Ratio 0.5 L Lipase 23 L Discharge Plan Triage Chief Complaint: Abd Pain ED Provider: Aniceto Carias Dx/Rx/DC Orders Prescriptions: No Action albuterol sulfate 90 mcg/actuation HFA aerosol inhaler 2 puff inhalation 4X/DAY PRN (Reason: Dyspnea/Wheezing/Sob) RF: 0 amlodipine 5 mg tablet 5 mg PO DAILY RF: 0 budesonide-formoterol 160-4.5 mcg/actuation HFA aerosol inhaler 2 puff INHALATION BID RF: 0 tiotropium bromide 18 mcg capsule, w/inhalation device 1 cap INHALATION DAILY RF: 0 Trelegy Ellipta 100-62.5-25 mcg blister with device 1 inh INHALATION DAILY RF: 0 prednisone 20 mg tablet 40 mg PO DAILY Qty: 10 RF: 0 losartan-hydrochlorothiazide 100-12.5 mg tablet 1 tab PO DAILY Qty: 90 RF: 3 Primary Care Provider: Frank Tapia
[2021-07-06] MEDS: 0.9% Normal Saline 1,000 ML 1000 ML IV (21:07)
[2021-07-06] MEDS: Ondansetron 4 MG/2 ML Vial IV (21:07)
[2021-07-06 21:21] LABS: Absolute Lymphocyte Count 0.82 X10^3/uL (0.83-4.51); Absolute Neutrophil Count 20.2 X10^3/uL (2.0-7.7); Basophil# 0.17 X10^3/uL; Basophil% 0.7 % (0-1); Eosinophil# 0.01 X10^3/uL; Hematocrit 45.5 % (40-54); Hemoglobin 14.6 g/dL (13.0-16.5); Lymphocyte # 0.82 X10^3/ul (0.83-4.51); Lymphocyte % 3.6 % (19-41); Mean Corp Hgb Conc 32.1 g/dL (32-36); Mean Corpuscular Hgb 29.1 pg (27.0-32.0); Mean Corpuscular Volume 90.6 fL (80-94); Mean Platelet Vol. 10.2 fl (6.2-12.0); Monocyte% 6.1 % (0-10); NRBC Flagged by Analyzer 0 % (0-5); Neutrophil # 20.16 X10^3/uL (2.7-7.7); Neutrophil % 87.9 % (47-70); POSITIVE DIFFERENTIAL YES; POSITIVE MORPHOLOGY YES; Platelet Count 595 K/mm3 (150-450); RBC Distribution Width CV 14.5 % (11.6-14.6); RBC Distribution Width SD 48.6 fl (35.1-43.9); Red Blood Count 5.02 M/mm3 (4.6-6.2)
[2021-07-06 21:24] LABS: Differential Indicated SCAN CRITERIA MET
[2021-07-06 21:59] LABS: Platelet Estimate MKD INC (ADEQ)
[2021-07-06 22:00] LABS: Anisocytosis RARE; Macrocytosis RARE; Platelet Morphology LARGE; Red Cell Morphology N CHROM NORMAL (NORM C&C)
[2021-07-06 22:08] LABS: ALB/GLOB Ratio 0.5 RATIO (0.9-2.4); AST(SGOT) 21 U/L (15-37); Alanine Aminotransfer ALT/SGPT 40 U/L (16-61); Albumin, Serum 2.8 g/dL (3.2-5.0); Alkaline Phosphatase 92 U/L (45-117); Anion Gap 12 (5-15); BUN 66 mg/dL (7-18); BUN/Creat Ratio 22.4 RATIO (10-20); Calcium,Total 9.4 mg/dL (8.5-10.1); Chloride 88 mmol/L (98-107); Creatinine, Serum 2.94 mg/dL (0.70-1.30); EST Glomerular Filtration Rate 23 mL/min (>60); Est Glom Filt Rate - Afr Amer 28 mL/min (>60); Estimated Creatinine Clearance 21.25 ml/min; Globulin 5.2 g/dL (2.2-4.2); Glucose 196 mg/dL (74-106); Lipase 23 U/L (73-393); Potassium 4.7 mmol/L (3.5-5.1); Sodium Level 131 mmol/L (136-145)
--- NOTE | 2021-07-06 22:34 | HP.PCM.HOS_ITS ---
HPI - General HPI Narrative JESUS RICARDO, is a 66 M with a significant history of COPD who presents to the emergency department with a persistent constipation. Reportedly the last time he had adequate bowel movements was on June 05, 2021. He was at emergent department 4 days ago and was giving 3 enemas which was productive only for small bowel movements without appropriate relief. Associated with his symptoms is nausea and vomiting. Also he has abdominal pain and abdominal distention. He was at emergency department on the same day of presentation. He was given enema and lactulose but his bowels did not move. He was sent home on [employer]. The case was discussed at that time with Dr. Gu who was willing to see outpatient if patient constipation did not resolve. Subsequently, patient has returned back with the same symptoms. [facility]LY [facility] Medical History Acute diverticulitis Chest pain CHF (congestive heart failure) CKD (chronic kidney disease), stage III Colitis, acute COPD (chronic obstructive pulmonary disease) COPD with exacerbation Cough Diverticulitis large intestine Diverticulitis of large intestine with abscess Essential hypertension Sepsis Shortness of breath Small bowel obstruction Syncope Tobacco use Type 2 diabetes mellitus without complication Home Medications albuterol sulfate 90 mcg/actuation aerosol inhaler 2 puff INHALATION 4X/DAY PRN g 06/03/19 [History Last Taken 06/06/21] amlodipine 5 mg tablet 5 mg PO DAILY 06/03/19 [History Last Taken 06/05/21] budesonide-formoterol HFA 160 mcg-4.5 mcg/actuation aerosol inhaler 2 puff INHALATION BID 06/03/19 [History Last Taken 06/06/21] tiotropium bromide 18 mcg capsule with inhalation device 1 cap INHALATION DAILY 06/03/19 [History Last Taken 06/06/21] losartan 100 mg-hydrochlorothiazide 12.5 mg tablet 1 tab PO DAILY #90 tab 06/23/19 [Rx Last Taken 06/06/21] Trelegy Ellipta 1 inh INHALATION DAILY 06/06/21 [History Last Taken Unknown] prednisone 40 mg PO DAILY #10 tab 06/09/21 [Rx Last Taken Unknown] Allergy/AdvReac Type Severity Reaction Status Date / Time lisinopril AdvReac Intermediate cough Verified 06/06/21 14:28 Family History Mother Diabetes Father Diabetes Brother CAD (coronary artery disease) stents Brother , age 58 CAD (coronary artery disease) stents Sister Diabetes Surgical History History of appendectomy Social History Smoking Status: Light Smoker (<10/day) alcohol intake: never substance use type: does not use caffeine: Yes Type: coffee Number of servings: 1 ROS ROS Narrative Constitutional: Denies anorexia and change in weight Eyes: Denies blurry vision, change in eye color, change in vision, discharge from eye(s), double vision, erythema, eye pain, loss of vision or other HEENT: Denies abnormal hearing, dysphagia, ear pain, epistaxis, headache(s), hearing loss, nasal congestion, nasal discharge, post nasal drip, sinus pressure, sore throat or other Cardiovascular: Denies chest pain or palpitations. Denies dyspnea on exertion, orthopnea and paroxysmal nocturnal dyspnea Respiratory/Chest: Denies cough, excessive phlegm production, shortness of breath with exertion and wheezing Gastrointestinal: Reports abdominal pain nausea and vomiting. Reports constipation. Genitourinary: Denies burning urination, difficulty urinating, dysuria, hematuria, nocturia, urinary frequency, urinary hesitancy, urinary incontinence, urinary urgency or other Musculoskeletal: Denies arthralgias, back pain, joint pain, joint stiffness, joint swelling, myalgias, neck pain or other Neurologic: Denies abnormal gait, abnormal speech, confusion, disequilibrium, dizziness, focal weakness, headache(s), numbness, paresthesias, seizure-like activity, seizures, syncope, tingling, tremor(s) or other Psychiatric: Denies anxiety, depression, homicidal ideation, suicidal ideation or other Endocrinology: Denies change in body appearance, cold intolerance, excessive sweating, heat intolerance, polydipsia, polyuria or other Hematologic/Lymphatic: Denies anemia, easy bleeding, easy bruising, lymphadenopathy or other Integumentary: Denies rashes Allergic/Immunologic: Denies rhinitis, hives, eczema, asthma or other Vital Signs Vital Signs Vital Signs: 07/06/21 20:41 07/06/21 20:45 Temperature 96.8 F L 96.8 F L Temperature Source Temporal Temporal Pulse Rate 90 90 Respiratory Rate 24 H 24 H Blood Pressure 135/89 H 135/89 H Blood Pressure Mean 104 104 Pulse Ox 94 94 Oxygen Delivery Method Nasal Cannula Nasal Cannula Oxygen Flow Rate (L/min) 4 4 Weight Weight: 84 kg Body Mass Index (BMI) 31.8 Results Lab / Micro Data Result Diagrams: 07/06/21 21:13 07/06/21 21:13 Labs: Laboratory Results - last 24 hr 07/06/21 21:13: WBC 23.0 H, RBC 5.02, Hgb 14.6, Hct 45.5, MCV 90.6, MCH 29.1, MCHC 32.1, RDW Std Deviation 48.6 H, RDW Coeff of Kannan 14.5, Plt Count 595 H, MPV 10.2, Immature Gran % (Auto) 1.700 H, Neut % (Auto) 87.9 H, Lymph % (Auto) 3.6 L , [place] % (Auto) 6.1, Eos % (Auto) 0.0, Baso % (Auto) 0.7, Absolute Neuts (auto) 20.2 H, Absolute Lymphs (auto) 0.82 L, Nucleated RBC % 0, Differential Comment SEE COMMENT, Platelet Estimate MKD INC, Plt Morphology Comment LARGE, RBC Morphology N CHROM, Anisocytosis RARE, Macrocytosis RARE 07/06/21 21:13: Sodium 131 L, Potassium 4.7, Chloride 88 L, Carbon Dioxide 31.0, Anion Gap 12, BUN 66 H, Creatinine 2.94 H, Estim Creat Clear Calc 21.25, Est GFR (MDRD) Af Amer 28 L, Est GFR (MDRD) Non-Af 23 L, BUN/Creatinine Ratio 22.4 H, Glucose 196 H, Calcium 9.4, Total Bilirubin 0.70, AST 21, ALT 40, Alkaline Phosphatase 92, Total Protein 8.0, Albumin 2.8 L, Globulin 5.2 H, Albumin/Globulin Ratio 0.5 L, Lipase 23 L Assessment & Plan Assessment/Plan (1) Constipation: QUALIFIERS: Constipation type: other constipation type Qualified Code(s): K59.09 - Other constipation (2) Acute kidney injury superimposed on chronic kidney disease: (3) 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 Large right scrotal hernia containing nondilated small bowel. Fatty infiltration of the liver. Abdomen and pelvis CT was independently interpreted and activated like interpretation. Fleet edema ordered. We will keep n.p.o. Zofran IV and Compazine IV as needed ordered. Will consult general surgery. Supportive treatment with IV fluids Leukocytosis and thrombocytosis Review of ED labs showed white count of 23. Earlier on in the same day white count was 18.7. Also bandemia of 1.7 percent. Platelet of 595. Leukocytosis is acute on chronic. Like secondary to dehydration. IV hydration as above. LEYDA on CKD stage IIIb CKD like secondary to hypertensive nephrosclerosis. Creatinine on presentation was 2.94. Review of record shows a creatinine baseline around 1.5. BUN is 66. BUN over creatinine is 22.4. Likely prerenal from dehydration. IV fluids ordered. Avoid nephrotoxins. Of note patient is on home losartan and hydrochlorothiazide. Trend BMP. Hypertension Blood pressure is not within goal With n.p.o. status as needed hydralazine IV ordered. Trend blood pressure and adjust blood pressure medications. COPD on home oxygen Stable Breathing treatment continued DVT prophylaxis Subcutaneous Lovenox ordered. Charges/Coding Visit Charges Inpatient E&M: 85115 Init Hosp L3
[2021-07-06 22:53] VITALS: BP 127/64; PULSE 89; RESP 22; TEMP 36.5; O2SAT 93
[2021-07-06 23:29] VITALS: BP 115/90; PULSE 93; RESP 18; TEMP 36.6; O2SAT 93
[2021-07-07] VITALS (29 sets, daily range): BP systolic 32–134; BP diastolic 16–87; PULSE 44–120; RESP 14–50; TEMP 36.6–36.8; O2SAT 78–100; BMI 31.5
[2021-07-07] MEDS: 0.9% Normal Saline 1,000 ML 100 ML IV (01:24)
[2021-07-07] MEDS: Mineral Oil 1 BOTTLE ENEMA 1 ML RC (01:25)
[2021-07-07] MEDS: Albuterol 2.5 MG/3 ML VIAL.NEB. INHALATION ×2 (02:22→08:25)
[2021-07-07 05:59] LABS: Absolute Lymphocyte Count 0.63 X10^3/uL (0.83-4.51); Basophil# 0.18 X10^3/uL; Basophil% 0.8 % (0-1); Eosinophil# 0.07 X10^3/uL; Eosinophils% 0.3 % (0-5); Hematocrit 43.5 % (40-54); Hemoglobin 13.9 g/dL (13.0-16.5); Lymphocyte # 0.63 X10^3/ul (0.83-4.51); Lymphocyte % 2.8 % (19-41); Mean Corpuscular Hgb 29.2 pg (27.0-32.0); Mean Corpuscular Volume 91.4 fL (80-94); Mean Platelet Vol. 10.2 fl (6.2-12.0); Monocyte# 0.95 X10^3/uL; Monocyte% 4.3 % (0-10); NRBC Flagged by Analyzer 0 % (0-5); Neutrophil # 20.04 X10^3/uL (2.7-7.7); Neutrophil % 90.6 % (47-70); POSITIVE DIFFERENTIAL YES; POSITIVE MORPHOLOGY YES; Platelet Count 564 K/mm3 (150-450); RBC Distribution Width CV 14.6 % (11.6-14.6); RBC Distribution Width SD 49.1 fl (35.1-43.9); Red Blood Count 4.76 M/mm3 (4.6-6.2); White Blood Count 22.1 K/mm3 (4.4-11.0)
[2021-07-07 06:31] LABS: Differential Indicated SCAN CRITERIA MET
[2021-07-07 06:36] LABS: Anion Gap 9 (5-15); BUN 73 mg/dL (7-18); BUN/Creat Ratio 21.7 RATIO (10-20); Calcium,Total 8.5 mg/dL (8.5-10.1); Chloride 92 mmol/L (98-107); Creatinine, Serum 3.37 mg/dL (0.70-1.30); EST Glomerular Filtration Rate 20 mL/min (>60); Est Glom Filt Rate - Afr Amer 24 mL/min (>60); Estimated Creatinine Clearance 18.54 ml/min; Glucose 158 mg/dL (74-106); Potassium 4.6 mmol/L (3.5-5.1); Sodium Level 132 mmol/L (136-145)
[2021-07-07 06:58] LABS: Differential Comment SCANNED
[2021-07-07] MEDS: Budesonide Respules 0.5 MG/2 ML AMPUL.NEB. INHALATION (08:00)
[2021-07-07] MEDS: Ipratropium/Albuterol Sulfate 3 ML AMPUL.NEB INHALATION (08:00)
--- NOTE | 2021-07-07 08:04 | NURSING ---
called to room by primary RN stating pt in resp. distress RR around 50bpm. cps was already called. pt verbalized cp and sob. spo2 noted in 70's on 10lnc. NRB placed. Dr. Cheney paged and cps called for EKG.94/71 HR 116
--- NOTE | 2021-07-07 08:07 | EKG12_ITS ---
Test Reason : CP Blood Pressure : / mmHG Vent. Rate : 115 BPM Atrial Rate : 115 BPM P-R Int : 120 ms QRS Dur : 086 ms QT Int : 284 ms P-R-T Axes : 061 046 033 degrees QTc Int : 392 ms Sinus tachycardia Possible Left atrial enlargement Borderline ECG No previous ECGs available Confirmed by JC DORMAN, PETER ([id number]), makeup editor EDU GUTIERREZ ([id number]) on 07/16/2021 1:45:38 PM Referred By: GAMA Confirmed By:PETER GREENE MD
--- NOTE | 2021-07-07 08:16 | RAD_ITS ---
We are attempting to reach an attending provider to discuss findings. An addendum with communication details will be sent when the communication is complete. STUDY: X-RAY CHEST REASON FOR EXAM: Male, 66 years old. Shortness of breath TECHNIQUE: Single AP portable view of the chest. COMPARISON: 06/06/2021. FINDINGS: Mild atelectatic changes in the left lung base. No focal infiltrate is seen. There is no demonstrated pleural abnormality. Normal size heart. Normal mediastinum and krystyna. Normal visualized pulmonary arteries. Normal visualized aortic arch and descending thoracic aorta. Normal visualized thoracic spine. Normal visualized ribs, clavicles, and shoulders. Pneumoperitoneum new since the recent CT scan of the abdomen and pelvis of 07/06/2021. RAD/Chest 1 View (Portable) IMPRESSION: Pneumoperitoneum new since previous exam. Electronically Signed: Mario Alberto Gomez MD at 8:55 EDT Tel , Service support ,
--- NOTE | 2021-07-07 08:16 | RAD_ITS ---
STUDY: X-RAY - ABDOMEN/PELVIS REASON FOR EXAM: Male, 66 years old. Shortness of breath and distended abdomen TECHNIQUE: Single AP view of the abdomen / pelvis. COMPARISON: None. FINDINGS: The lower abdomen is not entirely included on this examination. Large amount of free air in the abdomen. Fecal retention. Degenerative changes in the spine. RAD/Abdomen Single View IMPRESSION: Pneumoperitoneum. Fecal retention. Electronically Signed: Mario Alberto Gomez MD at 8:57 EDT Tel , Service support ,
[2021-07-07] MEDS: Furosemide 40 MG/4 ML Vial IV (08:30)
[2021-07-07 08:31] LABS: Allen Test Positive; Base Excess -2 mmol/L (-2 to +2); Bicarbonate 25.5 mmol/L (22-26); Blood Gas Specimen Type ART; O2 Delivery Device NRB; PO2 89 mmHG (75-100); SITE R Radial; SO2 95 % (95-99); Total Carbon Dioxide 27 mmol/L; pCO2 60.5 mmHg (35-45); pH 7.23 (7.35-7.45)
[2021-07-07 08:46] LABS: Bedside Glucose 166 mg/dL (70-110)
--- NOTE | 2021-07-07 08:50 | NURSING ---
pt transfered to icu on telemonitor, cont.spo2 by primary RN. Dr. crow was in to see pt and aware of full NGT canister/color. pri157% on NRB. color technician. remains at bedside.
--- NOTE | 2021-07-07 08:54 | PN.HOSP_ITS ---
Subjective Subjective Patient was seen and examined emergently. Overnight, he had worsening respiratory distress. He was up to 6 L of oxygen. He got progressively SOB, he was put on non-rebreather, got Lasix IV 40mg X1, breathing treatments. Patient was found to be significantly distended. Chest x-ray and KUB showed pneumothorax. An NG tube placed had coffee-ground aspirate. Patient remained tachycardic, tachypneic, he was emergently transferred to the ICU. In ICU, patient was intubated and a central line was placed. Objective Data Objective Data Vital Signs: Vital Signs Temp Pulse Resp BP Pulse Ox 98.0 F 44 L 50 H 134/73 H 80 07/07/21 08:00 07/07/21 08:00 07/07/21 08:00 07/07/21 08:00 07/07/21 08:00 Oxygen Flow Rate (L/min) 10 Oxygen Delivery Method Nasal Cannula Weight: 83.416 kg Body Mass Index (BMI) 31.5 Intake & Output: Intake and Output for Last 24 Hours 07/05/21 07/06/21 07/07/21 23:59 23:59 23:59 Intake Total 1000 / 1000 Balance 1000 / 1000 Lab / Micro Data Result Diagrams: 07/07/21 05:50 07/07/21 05:50 Labs: Laboratory Results - last 24 hr 07/06/21 21:13: WBC 23.0 H, RBC 5.02, Hgb 14.6, Hct 45.5, MCV 90.6, MCH 29.1, MCHC 32.1, RDW Std Deviation 48.6 H, RDW Coeff of Kannan 14.5, Plt Count 595 H, MPV 10.2, Immature Gran % (Auto) 1.700 H, Neut % (Auto) 87.9 H, Lymph % (Auto) 3.6 L , [place] % (Auto) 6.1, Eos % (Auto) 0.0, Baso % (Auto) 0.7, Absolute Neuts (auto) 20.2 H, Absolute Lymphs (auto) 0.82 L, Nucleated RBC % 0, Differential Comment SEE COMMENT, Platelet Estimate MKD INC, Plt Morphology Comment LARGE, RBC Morphology N CHROM, Anisocytosis RARE, Macrocytosis RARE 07/06/21 21:13: Sodium 131 L, Potassium 4.7, Chloride 88 L, Carbon Dioxide 31.0, Anion Gap 12, BUN 66 H, Creatinine 2.94 H, Estim Creat Clear Calc 21.25, Est GFR (MDRD) Af Amer 28 L, Est GFR (MDRD) Non-Af 23 L, BUN/Creatinine Ratio 22.4 H, Glucose 196 H, Calcium 9.4, Total Bilirubin 0.70, AST 21, ALT 40, Alkaline Phosphatase 92, Total Protein 8.0, Albumin 2.8 L, Globulin 5.2 H, Albumin/Globulin Ratio 0.5 L, Lipase 23 L 07/07/21 05:50: WBC 22.1 H, RBC 4.76, Hgb 13.9, Hct 43.5, MCV 91.4, MCH 29.2, MCHC 32.0, RDW Std Deviation 49.1 H, RDW Coeff of Kannan 14.6, Plt Count 564 H, MPV 10.2, Immature Gran % (Auto) 1.200 H, Neut % (Auto) 90.6 H, Lymph % (Auto) 2.8 L , [place] % (Auto) 4.3, Eos % (Auto) 0.3, Baso % (Auto) 0.8, Absolute Neuts (auto) 20.0 H, Absolute Lymphs (auto) 0.63 L, Nucleated RBC % 0, Differential Comment SCANNED 07/07/21 05:50: Sodium 132 L, Potassium 4.6, Chloride 92 L, Carbon Dioxide 31.0, Anion Gap 9, BUN 73 H, Creatinine 3.37 H, Estim Creat Clear Calc 18.54, Est GFR (MDRD) Af Amer 24 L, Est GFR (MDRD) Non-Af 20 L, BUN/Creatinine Ratio 21.7 H, Glucose 158 H, Calcium 8.5 07/07/21 08:39: POC Glucose 166 H Micro: Microbiology 07/06/21 22:32 Nasal Secretion SARS-CoV-2 Antigen (Rapid) - Final ABG Data ABG results: ABG 07/07/21 08:26 Specimen Type ART Sample Site R Radial pH 7.23 L Bicarbonate Actual 25.5 Total CO2 27 Base Excess -2 O2 Saturation 95 ABG pCO2 60.5 H ABG pO2 89 Jayden Test Positive O2 Delivery Device NRB Liter Flow 15.0 Physical Exam Narrative Physical exam: General: Alert, Oriented x3, Cooperative, No apparent distress, Well developed HEENT: Atraumatic Oral: Moist Mucosa Neck: Supple Lungs: Clear to auscultation Cardiovascular: HS I+II, regular, no murmurs Abdomen: Bowel Sounds Present, Soft, Non Tender Extremities: No edema Skin: No rashes, No breakdown Neurological: Grossly intact Psych/Mental Status: Appropriate Assessment & Plan Assessment/Plan (1) Upper GI bleed: (2) Bowel obstruction: QUALIFIERS: Intestinal obstruction extent: unspecified extent Intestinal obstruction type: unspecified Qualified Code(s): K56.609 - Unspecified intestinal obstruction, unspecified as to partial versus complete obstruction (3) Essential hypertension: (4) Acute kidney injury superimposed on chronic kidney disease: (5) Pneumoperitoneum: (6) Constipation: QUALIFIERS: Constipation type: other constipation type Qualified Code(s): K59.09 - Other constipation (7) Septic shock: (8) Acute abdomen: PLAN: 1. Acute abdomen - acute pneumoperitoneum, patient admitted with colonic distention secondary to fecal matter and large right scrotal hernia Noted to have worsening abdominal discomfort with inability to breathe this morning Chest x-ray abdominal KUB confirms acute pneumoperitoneum 2. Acute respiratory failure secondary to acute COPD exacerbation Status post intubation. Patient on mechanical ventilator 3. Septic shock due to acute abdomen with perforated bowel/acute pneumoperitoneum Started on IV pressors, IV fluid bolus Will also start on IV Zosyn 4. LEYDA on CKD stage IIIa, creatinine is 3.37. Admitted with creatinine of 1.95 We will trend 5. Hypertension, now hypotensive, will hold home meds Charges/Coding Visit Charges In[facility] E&M: 60899 [facility]
--- NOTE | 2021-07-07 09:07 | NURSING ---
attempt to call [facility] and lucila unsuccessful-
--- NOTE | 2021-07-07 09:13 | NURSING ---
@ 0800 dr heath at bedside, ivf placed to kvo, n/g #16 placed in right nares and piece of tape placed at nares-conformed by raza pederson w/stethescope and air syringe 15 cc-immediate return of 1000 cc coffee ground fluid-CXR and single abdomen taken by x-ray, ekg taken and dr heath viewed-dr friend in to see pt, pt transferred to ICU bed 3 after report given, respitations have imp[roved slightly after 2 aerosols in 30 min time frame-
[2021-07-07] MEDS: Etomidate 20 MG/10 ML Vial IV (09:20)
[2021-07-07] MEDS: Lactated Ringers 1,000 ML 999 ML IV (09:23)
[2021-07-07] MEDS: Phenylephrine 10 MG/ML Vial IV ×2 (09:26→09:29)
--- NOTE | 2021-07-07 09:27 | RAD_ITS ---
STUDY: X-RAY CHEST REASON FOR EXAM: Male, 66 years old. Central line ETT TECHNIQUE: Single AP portable view of the chest. COMPARISON: 06/06/2021. FINDINGS: Endotracheal tube with its tip approximately 3.5 cm proximal to the alfredito. Nasogastric tube extends below the level of the diaphragm. Right internal jugular central venous catheter with its tip in the distal vena cava. Segmental atelectatic changes in the left lung base. There is no demonstrated pleural abnormality. Normal size heart. Normal mediastinum and krystyna. Normal visualized pulmonary arteries. Normal visualized aortic arch and descending thoracic aorta. Unchanged osseous structures. There is no demonstrated abnormality of the visualized soft tissue structures of the upper abdomen. RAD/CXR for Line Placement IMPRESSION: Status post intubation and nasogastric tube placement. Atelectatic changes in the left lung base. Electronically Signed: Mario Alberto Gomez MD at 10:24 EDT Tel , Service support ,
--- NOTE | 2021-07-07 09:27 | CPS ---
Upon entering room pt was in distress. Aerosol rx administered. NRB mask applied. Dr Norris in room.
[2021-07-07] MEDS: Phenylephrine 1 MG/10 ML SYRINGE IV (09:29)
[2021-07-07] MEDS: Propofol 10MG/Ml 1,000 MG/100 ML Bottle 2.5 MG CONT INF (09:30)
--- NOTE | 2021-07-07 09:30 | CPS ---
Per verbal order from Dr Norris pt was given a stat aerosol rx with albuterol for wheezing and distress
--- NOTE | 2021-07-07 09:36 | CON.PCM.GI_ITS ---
HPI Consult Data Date of Consult: 07/07/21 HPI Narrative HPI Narrative: JESUS RICARDO, is a 66 M who presented to the emergency room with nausea vomiting. He had not gone to the bathroom and over 17 days. However he was still able to pass some gas. He has a past medical history of see COPD on home oxygen, CHF, CKD stage III, acute recurrent diverticulitis and possible ischemic colitis. He had been seen in the emergency room 4 days ago with severe constipation and was given multiple enemas without success. He went home and tried multiple oral osmotic laxatives to have a bowel movement without success. When he came back to the hospital he was having vomiting without blood. His CT scan on 07/06/2021 had showed severe colonic dilation secondary to constipation. This morning I was called to see the patient emergently because he had multiple episodes of hematemesis. An NG tube was placed emergently and he had about 500 cc of coffee-ground em esis. His abdominal X x-ray this morning that showed dilated bowel. At this time he is being seen by pulmonary critical care and is being sent to the ICU. After talking with surgery I found out that he has a history of a sigmoid stricture in the past secondary to perforated diverticulitis resulting in a sigmoid resection. On a recent colonoscopy they were not able to get past the sigmoid stricture. [facility] Medical History Acute diverticulitis Chest pain CHF (congestive heart failure) CKD (chronic kidney disease), stage III Colitis, acute COPD (chronic obstructive pulmonary disease) COPD with exacerbation Cough Diverticulitis large intestine Diverticulitis of large intestine with abscess Essential hypertension Sepsis Shortness of breath Small bowel obstruction Syncope Tobacco use Type 2 diabetes mellitus without complication Home Medications albuterol sulfate 90 mcg/actuation aerosol inhaler 2 puff INHALATION 4X/DAY PRN g 06/03/19 [History Last Taken 06/06/21] amlodipine 5 mg tablet 5 mg PO DAILY 06/03/19 [History Last Taken 06/05/21] budesonide-formoterol HFA 160 mcg-4.5 mcg/actuation aerosol inhaler 2 puff INHALATION BID 06/03/19 [History Last Taken 06/06/21] tiotropium bromide 18 mcg capsule with inhalation device 1 cap INHALATION DAILY 06/03/19 [History Last Taken 06/06/21] losartan 100 mg-hydrochlorothiazide 12.5 mg tablet 1 tab PO DAILY #90 tab 06/23/19 [Rx Last Taken 06/06/21] Trelegy Ellipta 1 inh INHALATION DAILY 06/06/21 [History Last Taken Unknown] prednisone 40 mg PO DAILY #10 tab 06/09/21 [Rx Last Taken Unknown] Allergy/AdvReac Type Severity Reaction Status Date / Time lisinopril AdvReac Intermediate cough Verified 06/06/21 14:28 Family History Mother Diabetes Father Diabetes Brother CAD (coronary artery disease) stents Brother , age 58 CAD (coronary artery disease) stents Sister Diabetes Surgical History History of appendectomy Social History Smoking Status: Light Smoker (<10/day) alcohol intake: never substance use type: does not use caffeine: Yes Type: coffee Number of servings: 1 ROS Review of Systems ROS Unobtainable: other Constitutional Constitutional: Denies fatigue, fever(s), poor appetite, weight gain or weight loss ENT HEENT: Denies mouth lesions Cardiovascular Cardiovascular: Reports abdominal bloating, abdominal edema and abdominal pain Respiratory/Chest Respiratory/Chest: Reports shortness of breath at rest; Denies change in mental status, change in phlegm color, chest congestion or chest tightness Gastrointestinal Gastrointestinal: Reports abdominal pain, bloating, coffee ground emesis, constipation and cramping; Denies belching, change in bowel habits, change in stool character, chewing difficulty, diarrhea, dyspepsia, dysphagia, early satiety, excessive flatus, fecal incontinence, heartburn, hematemesis, hematochezia, hemorrhoids, loose stools, melena, nausea, odynophagia, rectal bleeding, tenesmus, vomiting or weight changes Genitourinary Genitourinary: Denies abdominal discomfort, burning urination or itching Musculoskeletal Musculoskeletal: Reports as per HPI; Denies muscle weakness or myalgias Integumentary Integumentary: Denies jaundice Neurologic Neurologic: Denies lack of coordination or weakness Psychiatric Psychiatric: Denies confusion, depression, memory loss, mood swings, paranoia or suicidal ideation Endocrine Endocrinology: Denies systems reviewed and no addt'l complaints, except as documented Hematologic/Lymphatic Hematologic/Lymphatic: Denies anemia, easy bleeding, easy bruising or lymphadenopathy Allergic/Immunologic Allergic/Immunologic: Denies systems reviewed and no addt'l complaints, except as documented Physical Exam Const alert General Appearance: cooperative Orientation / Consciousness: oriented to person HEENT hearing grossly normal bilaterally Head and Scalp: normal to inspection Face and Sinus: face symmetric Nose: external nose normal Mouth: oral and palatal mucosa normal Eyes conjunctivae normal General Eye: normal appearance of both eyes Neck full ROM General: normal visual inspection Lymph Lymphatic: no lymphadenopathy noted Chest inspection of chest normal and palpation of chest normal Chest: symmetrical chest wall rise Resp Effort and Inspection: able to speak in complete sentences, abnormal respiratory pattern and tachypneic Cardio regular rate GI Auscultation: hypoactive bowel sounds Palpation: firm and rigid Rectal Exam: deferred Neuro Speech: speech normal Gait (Neuro): normal gait Lab / Micro Data Result Diagrams: 07/07/21 10:00 07/07/21 05:50 Labs: Laboratory Results - last 24 hr 07/06/21 21:13: WBC 23.0 H, RBC 5.02, Hgb 14.6, Hct 45.5, MCV 90.6, MCH 29.1, MCHC 32.1, RDW Std Deviation 48.6 H, RDW Coeff of Kannan 14.5, Plt Count 595 H, MPV 10.2, Immature Gran % (Auto) 1.700 H, Neut % (Auto) 87.9 H, Lymph % (Auto) 3.6 L , [place] % (Auto) 6.1, Eos % (Auto) 0.0, Baso % (Auto) 0.7, Absolute Neuts (auto) 20.2 H, Absolute Lymphs (auto) 0.82 L, Nucleated RBC % 0, Differential Comment SEE COMMENT, Platelet Estimate MKD INC, Plt Morphology Comment LARGE, RBC Morphology N CHROM, Anisocytosis RARE, Macrocytosis RARE 07/06/21 21:13: Sodium 131 L, Potassium 4.7, Chloride 88 L, Carbon Dioxide 31.0, Anion Gap 12, BUN 66 H, Creatinine 2.94 H, Estim Creat Clear Calc 21.25, Est GFR (MDRD) Af Amer 28 L, Est GFR (MDRD) Non-Af 23 L, BUN/Creatinine Ratio 22.4 H, Glucose 196 H, Calcium 9.4, Total Bilirubin 0.70, AST 21, ALT 40, Alkaline Phosphatase 92, Total Protein 8.0, Albumin 2.8 L, Globulin 5.2 H, Albumin/Globulin Ratio 0.5 L, Lipase 23 L 07/07/21 05:50: WBC 22.1 H, RBC 4.76, Hgb 13.9, Hct 43.5, MCV 91.4, MCH 29.2, MCHC 32.0, RDW Std Deviation 49.1 H, RDW Coeff of Kannan 14.6, Plt Count 564 H, MPV 10.2, Immature Gran % (Auto) 1.200 H, Neut % (Auto) 90.6 H, Lymph % (Auto) 2.8 L , [place] % (Auto) 4.3, Eos % (Auto) 0.3, Baso % (Auto) 0.8, Absolute Neuts (auto) 20.0 H, Absolute Lymphs (auto) 0.63 L, Nucleated RBC % 0, Differential Comment SCANNED 07/07/21 05:50: Sodium 132 L, Potassium 4.6, Chloride 92 L, Carbon Dioxide 31.0, Anion Gap 9, BUN 73 H, Creatinine 3.37 H, Estim Creat Clear Calc 18.54, Est GFR (MDRD) Af Amer 24 L, Est GFR (MDRD) Non-Af 20 L, BUN/Creatinine Ratio 21.7 H, Glucose 158 H, Calcium 8.5 07/07/21 08:39: POC Glucose 166 H Micro: Microbiology 07/06/21 22:32 Nasal Secretion SARS-CoV-2 Antigen (Rapid) - Final ABG Data ABG results: ABG 07/07/21 08:26 Specimen Type ART Sample Site R Radial pH 7.23 L Bicarbonate Actual 25.5 Total CO2 27 Base Excess -2 O2 Saturation 95 ABG pCO2 60.5 H ABG pO2 89 Jayden Test Positive O2 Delivery Device NRB Liter Flow 15.0 Radiology Impression Chest X-Ray 07/07/21 08:16 IMPRESSION: Pneumoperitoneum new since previous exam. Electronically Signed: Mario Alberto Gomez MD at 8:55 EDT Tel , Service support , KUB X-Ray 07/07/21 08:16 IMPRESSION: Pneumoperitoneum. Fecal retention. Electronically Signed: Mario Alberto Gomez MD at 8:57 EDT Tel , Service support , Assessment & Plan Assessment/Plan (1) Septic shock: PLAN: He is in septic shock on 2 pressors at this time. Also I just found out that he is possibly going to be comfort care. (2) Acute abdomen: PLAN: Acute abdomen secondary to perforated colon. He is not amendable to colonic decompression at this time. (3) Pneumoperitoneum: (4) Bowel obstruction: QUALIFIERS: Intestinal obstruction type: unspecified Intestinal obstruction extent: unspecified extent Qualified Code(s): K56.609 - Unspecified intestinal obstruction, unspecified as to partial versus complete obstruction (5) Upper GI bleed: PLAN: Upper GI bleed possibly secondary to multiple sources. He is not amendable to upper endoscopy at this time due to the severity of his illness. Charges/Coding Visit Charges Inpatient E&M: 81318 Init Hosp L3
[2021-07-07] MEDS: Midazolam 2 MG/2 ML Syringe IV (09:43)
--- NOTE | 2021-07-07 10:24 | EX.PCM.CONCC ---
Assessment & Plan Assessment/Plan (1) Septic shock: (2) Pneumoperitoneum: (3) Upper GI bleed: (4) Acute on chronic respiratory failure with hypoxia and hypercapnia: PLAN: RECOMMENDATIONS: 1. Initiate and titrate Levophed and vasopressin 2. Continue mechanical ventilation at the current settings 3. Await family decision on surgical intervention 4. Obtain coagulation studies 5. Clarify CODE STATUS 6. Hold on further interventions until family goals of care are determined. IMPRESSIONS: 1. Acute on chronic combined respiratory failure secondary to acute abdomen Initial ABG showed both hypoxic and hypercarbic respiratory failure. Patient was successfully intubated and is saturating well on the current settings. Repeat ABG showed adequate ventilation, but still significant metabolic acidosis. Patient does have a history of COPD with supplemental oxygen use of unclear levels. Patient should be placed on nebulizer therapy with bronchodilators and budesonide at a minimum if aggressive measures are to continue. 2. Pneumoperitoneum secondary to bowel obstruction with probable upper GI bleed Both gastroenterology and surgery are consulted. Patient does appear to have a pneumoperitoneum making this a surgical case that would be extremely high risk for fatality. Patient did have significant coffee grounds removed from the stomach prior to intubation. NG was left in place. Await family decision on surgical intervention. 3. Septic shock secondary to perforated bowel Patient currently on 2 pressors to maintain saturations. Patient does have a significant metabolic acidosis. Patient did not receive 30 cc/kg fluid bolus secondary to respiratory status with hypoxic respiratory failure concomitantly. We will continue to bolus as possible. Fluid ministration may be facilitated by the ability to use PEEP with the ventilator. 4. Acute on chronic kidney disease stage IIIa Clinical suspicion for both pre and post renal etiologies. Patient likely has an element of ureteral obstruction secondary to colonic mass and prerenal etiology secondary to problem #3. Patient is not hemodynamically stable at this time to receive hemodialysis. We will continue to monitor urine output. 5. Hypertension/delayed presentation/hernia Complicates care, management, recovery and prognosis. Discontinue baseline antihypertensive medications. CODE STATUS needs to be clarified if patient is not going to surgery. Await family decision. TIME: 110 minutes of critical care time, excluding procedures, was spent addressing patient's septic shock, respiratory failure, pneumoperitoneum, review of all data and collaboration with care team (8:45 AM to 10:50 AM) HPI Consult Data Date of Consult: 07/07/21 HPI Narrative HPI Narrative: JESUS RICARDO is a 66 M, with past medical history listed below, who presented to [facility] [place] 07/06/2021 secondary to abdominal pain secondary to constipation. Patient reportedly had been seen 4 days earlier and given multiple enemas without success. Patient states that he is gone approximately 17 days without a bowel movement, but was passing gas. Patient had some nausea and vomiting, but denied any constitutional symptoms such as fever, chills or sinus congestion. In ER, patient was afebrile, normotensive and saturating 94% on 4 L. Laboratory data showed a white blood cell count of 23, hemoglobin 14.6, sodium 131, BUN of 66 and creatinine of 2.94. A CT of the abdomen showed large colonic stool burden without obstruction. Patient was given IV fluids and Zofran. Given laboratory abnormalities, patient was admitted for observation. Notified of patient's condition at approximately 8:30 AM by hospitalist. At approximately 9 AM, the patient was brought to the intensive care unit in extremis. Patient was tachycardic, slightly hypotensive and tachypneic. Patient had mottling on his legs, but was able to answer some questions. Patient states he does have a history of COPD treated with oxygen therapy and inhalers. Patient is reportedly establishing with the [facility]. Patient was not able to provide much additional information on his past medical history, but did state that he was getting tired and was looking to having something definitive completed. There were discussions with Dr. Reyez and Dr. Gu about the appropriate course of action. There was a discussion about a decompressive colonoscopy, but KUB showed possible free air. ABG obtained at the bedside showed a mixed metabolic and respiratory acidosis with signs and symptoms of respiratory muscle fatigue. No further history was obtained. [facility] Medical History Acute diverticulitis Chest pain CHF (congestive heart failure) CKD (chronic kidney disease), stage III Colitis, acute COPD (chronic obstructive pulmonary disease) COPD with exacerbation Cough Diverticulitis large intestine Diverticulitis of large intestine with abscess Essential hypertension Sepsis Shortness of breath Small bowel obstruction Syncope Tobacco use Type 2 diabetes mellitus without complication Home Medications albuterol sulfate 90 mcg/actuation aerosol inhaler 2 puff INHALATION 4X/DAY PRN g 06/03/19 [History Last Taken 06/06/21] amlodipine 5 mg tablet 5 mg PO DAILY 06/03/19 [History Last Taken 06/05/21] budesonide-formoterol HFA 160 mcg-4.5 mcg/actuation aerosol inhaler 2 puff INHALATION BID 06/03/19 [History Last Taken 06/06/21] tiotropium bromide 18 mcg capsule with inhalation device 1 cap INHALATION DAILY 06/03/19 [History Last Taken 06/06/21] losartan 100 mg-hydrochlorothiazide 12.5 mg tablet 1 tab PO DAILY #90 tab 06/23/19 [Rx Last Taken 06/06/21] Trelegy Ellipta 1 inh INHALATION DAILY 06/06/21 [History Last Taken Unknown] prednisone 40 mg PO DAILY #10 tab 06/09/21 [Rx Last Taken Unknown] Allergy/AdvReac Type Severity Reaction Status Date / Time lisinopril AdvReac Intermediate cough Verified 06/06/21 14:28 Family History Mother Diabetes Father Diabetes Brother CAD (coronary artery disease) stents Brother , age 58 CAD (coronary artery disease) stents Sister Diabetes Surgical History History of appendectomy Social History Smoking Status: Light Smoker (<10/day) alcohol intake: never substance use type: does not use caffeine: Yes Type: coffee Number of servings: 1 ROS ROS Narrative See HPI Physical Exam Const alert General Appearance: cooperative Orientation / Consciousness: oriented to person HEENT hearing grossly normal bilaterally Head and Scalp: normal to inspection Face and Sinus: face symmetric Nose: external nose normal Mouth: oral and palatal mucosa normal Eyes conjunctivae normal General Eye: normal appearance of both eyes Neck full ROM General: normal visual inspection Lymph Lymphatic: no lymphadenopathy noted Chest inspection of chest normal and palpation of chest normal Chest: symmetrical chest wall rise; Negative for crepitus Resp Effort and Inspection: tachypneic, respiratory distress, labored and uses accessory muscles; Negative for stridor Auscultation: rales bilateral base and diminished lung sounds; Negative for rhonchi or wheezes Cardio regular rhythm Rate: tachycardic Heart Sounds: Negative for gallop, murmur or rub GI Inspection: abdominal distention Auscultation: hypoactive bowel sounds Palpation: firm and rigid; Negative for abdominal wall crepitus Narrative: Significant scrotal edema noted Extremity normal to inspection General Extremity: Negative for clubbing, cyanosis or edema Skin General Skin Exam: mottling Neuro oriented x3, CN's II-XII intact bilaterally and no focal motor deficits Lab / Micro Data Result Diagrams: 07/07/21 05:50 07/07/21 05:50 Labs: Laboratory Results - last 24 hr 07/06/21 21:13: WBC 23.0 H, RBC 5.02, Hgb 14.6, Hct 45.5, MCV 90.6, MCH 29.1, MCHC 32.1, RDW Std Deviation 48.6 H, RDW Coeff of Kannan 14.5, Plt Count 595 H, MPV 10.2, Immature Gran % (Auto) 1.700 H, Neut % (Auto) 87.9 H, Lymph % (Auto) 3.6 L, [place] % (Auto) 6.1, Eos % (Auto) 0.0, Baso % (Auto) 0.7, Absolute Neuts (auto) 20.2 H, Absolute Lymphs (auto) 0.82 L, Nucleated RBC % 0, Differential Comment SEE COMMENT, Platelet Estimate MKD INC, Plt Morphology Comment LARGE, RBC Morphology N CHROM, Anisocytosis RARE, Macrocytosis RARE 07/06/21 21:13: Sodium 131 L, Potassium 4.7, Chloride 88 L, Carbon Dioxide 31.0, Anion Gap 12, BUN 66 H, Creatinine 2.94 H, Estim Creat Clear Calc 21.25, Est GFR (MDRD) Af Amer 28 L, Est GFR (MDRD) Non-Af 23 L, BUN/Creatinine Ratio 22.4 H, Glucose 196 H, Calcium 9.4, Total Bilirubin 0.70, AST 21, ALT 40, Alkaline Phosphatase 92, Total Protein 8.0, Albumin 2.8 L, Globulin 5.2 H, Albumin/Globulin Ratio 0.5 L, Lipase 23 L 07/07/21 05:50: WBC 22.1 H, RBC 4.76, Hgb 13.9, Hct 43.5, MCV 91.4, MCH 29.2, MCHC 32.0, RDW Std Deviation 49.1 H, RDW Coeff of Kannan 14.6, Plt Count 564 H, MPV 10.2, Immature Gran % (Auto) 1.200 H, Neut % (Auto) 90.6 H, Lymph % (Auto) 2.8 L, [place] % (Auto) 4.3, Eos % (Auto) 0.3, Baso % (Auto) 0.8, Absolute Neuts (auto) 20.0 H, Absolute Lymphs (auto) 0.63 L, Nucleated RBC % 0, Differential Comment SCANNED 07/07/21 05:50: Sodium 132 L, Potassium 4.6, Chloride 92 L, Carbon Dioxide 31.0, Anion Gap 9, BUN 73 H, Creatinine 3.37 H, Estim Creat Clear Calc 18.54, Est GFR (MDRD) Af Amer 24 L, Est GFR (MDRD) Non-Af 20 L, BUN/Creatinine Ratio 21.7 H, Glucose 158 H, Calcium 8.5 07/07/21 08:39: POC Glucose 166 H Micro: Microbiology 07/06/21 22:32 Nasal Secretion SARS-CoV-2 Antigen (Rapid) - Final ABG Data ABG results: ABG 07/07/21 08:26 Specimen Type ART Sample Site R Radial pH 7.23 L Bicarbonate Actual 25.5 Total CO2 27 Base Excess -2 O2 Saturation 95 ABG pCO2 60.5 H ABG pO2 89 Jayden Test Positive O2 Delivery Device NRB Liter Flow 15.0 Radiology Impression Chest X-Ray 07/07/21 08:16 IMPRESSION: Pneumoperitoneum new since previous exam. Electronically Signed: Mario Alberto Gomez MD at 8:55 EDT Tel , Service support , ADDENDUM: 07/07/21 1011 IMPRESSION: Pneumoperitoneum new since previous exam. N.B. : The above Results were Read Back by Mario Alberto Gomez MD to Dr. Noni MD, and understanding confirmed on 07/07/2021 10:04:07 (ET). Electronically Signed: Mario Alberto Goemz MD at 8:55 EDT Tel , Service support , KUB X-Ray 07/07/21 08:16 IMPRESSION: Pneumoperitoneum. Fecal retention. Electronically Signed: Mario Alberto Gomez MD at 8:57 EDT Tel , Service support , INTUBATION: Indication: Acute on chronic combined respiratory failure Consent was obtained from: Patient The patient was placed in the appropriate sniffing position. Preoxygenated sedation via BVM was provided for a minimum of 3 minutes. The patient had continuous cardiac as well as pulse oximetry monitoring during the procedure. Procedure sedation was provided by the administration of etomidate 20 mg. [place] scope laryngoscopy was then performed using a number 4 blade, which revealed a grade 1 view. A 8 mm endotracheal tube was visualized advancing between the cords to the level of 26 cm at the lip. The stylette was then removed and discarded. Tube placement was confirmed by fogging in the tube along with equal and bilateral breath sounds. Colorimetric change was visualized on the CO2 meter. The cuff was then inflated and the tube secured using a commercially available device. A good pulse oximetry waveform was seen on the monitor throughout the procedure. A portable chest x-ray has been ordered to confirm appropriate placement. The patient tolerated the procedure well. CENTRAL VENOUS CATHETER Indication: Hypotension Consent was obtained from: Emergent A time-out was completed verifying correct patient, procedure, site, positioning, and special equipment if applicable. The patient was placed in a dependent position appropriate for central line placement based on the vein to be cannulated. The patient's right neck was prepped and draped in a sterile fashion. 1% lidocaine was used to anesthetize the surrounding skin area. A triple-lumen catheter was introduced into the right IJ using the Seldinger technique and under ultrasound guidance. There was some slight resistance of the guidewire at approximately 5 cm. The catheter was threaded smoothly over the guidewire and appropriate blood return was obtained. Each lumen of the catheter was evacuated of air and flushed with sterile saline. The catheter was then sutured in place to the skin and a sterile dressing applied. Chest x-ray to confirm appropriate positioning is pending. ULTRASOUND GUIDANCE STATEMENT (Vascular Access): I performed ultrasound image acquisition and interpretation for needle placement during the procedure. The vessel was identified and found to be free of thrombosis by compression technique. A safe point of entry was marked at the skin in an angle for axis was determined. The needle was guided by obtaining free-flowing fluid and by real-time visualization. Charges/Coding Procedures Hospitalists Procedures: 47994 Critial Care 1st Hr Multi [facility] Hospitalists' Procedures Procedures: 46986 Insert Non-tunnel CV Cath [place] 38686 Critial Care Addl 30 Min (110 minutes of critical care time in total (80108 x2))
--- NOTE | 2021-07-07 10:30 | NURSING ---
Called pt's daughter listed to come in to be with pt. Expecting 3 visitors.
[2021-07-07 10:31] LABS: International Normalized Ratio 1.6
[2021-07-07 10:32] LABS: Partial Thromboplast Time 37.7 Seconds (24.1-36.2)
[2021-07-07 10:36] LABS: Allen Test Positive; Base Excess -7 mmol/L (-2 to +2); Bicarbonate 20.2 mmol/L (22-26); Blood Gas Specimen Type ART; FI02 100; Mode AC; O2 Delivery Device Adult Vent; PEEP 5; PO2 178 mmHG (75-100); RR 14; SITE R Radial; SO2 99 % (95-99); Total Carbon Dioxide 22 mmol/L; Vt 400; pCO2 42.9 mmHg (35-45); pH 7.28 (7.35-7.45)
--- NOTE | 2021-07-07 10:40 | CON.PCM.SX_ITS ---
Assessment & Plan Assessment/Plan (1) Acute on chronic respiratory failure with hypoxia and hypercapnia: (2) Acute abdomen: (3) Septic shock: (4) Pneumoperitoneum: PLAN: Given this patient's significant comorbidities and the fact that he is on 2 pressors at the present time, the only operation I could offer him would be a total abdominal colectomy with ileostomy given the fact that his colon is such greatly distended. In addition this may not be the only thing that is perforated on him, since 2017 he has had no further follow-up and I am not sure that he does not have a perforated sigmoid colon cancer. I have discussed this with the family and they are in agreement that they do not want any aerobic surgical measures done and would prefer that he is comfort care only. HPI Consult Data Date of Consult: 07/07/21 HPI Narrative HPI Narrative: JESUS RICARDO, is a 66 M who presents with a significant history of COPD who presents to the emergency department with a persistent constipation. Reportedly the last time he had adequate bowel movements was on June 05, 2021. He was at emergent department 4 days ago and was giving 3 enemas which was productive only for small bowel movements without appropriate relief. Associated with his symptoms is nausea and vomiting. Also he has abdominal pain and abdominal distention. He was at emergency department on the same day of presentation. He was given enema and lactulose but his bowels did not move. He was sent home on . The case was discussed at that time with Dr. Gu who was willing to see o utpatient if patient constipation did not resolve. Subsequently, patient has returned back with the same symptoms. I was notified last night of this consultation and was coming in to see him when I had a phone call from the hospitalist. He was subsequently examined emergently overnight with worsening respiratory distress. He was put on a nonrebreather complaining of shortness of breath received Lasix IV 40 mg x 1 as well as breathing treatments. An NG tube was placed showing coffee-ground e mesis and he remained tachycardic tachypneic and was transferred to the intensive care unit. An upright abdominal x-ray showed pneumoperitoneum. His initial CAT scan done on admission showed colonic distention due to a large amount of fecal material within the colon. A large right scrotal hernia containing nondilated loops of small bowel as well as fatty infiltrate of the liver. Of note he had a previous CAT scan in 2017 which showed a right inguinal hernia which was not as large as his current one. During that admission he had a sigmoid diverticulitis with abscess and was subsequently transferred to [place] where a drain was placed. He failed to follow back up with the surgeon there for evaluation for potential sigmoid colon resection. The patient is currently in the intensive care unit he is on 2 pressors. His kidney function is worsening. [facility] Medical History Acute diverticulitis Chest pain CHF (congestive heart failure) CKD (chronic kidney disease), stage III Colitis, acute COPD (chronic obstructive pulmonary disease) COPD with exacerbation Cough Diverticulitis large intestine Diverticulitis of large intestine with abscess Essential hypertension Sepsis Shortness of breath Small bowel obstruction Syncope Tobacco use Type 2 diabetes mellitus without complication Home Medications albuterol sulfate 90 mcg/actuation aerosol inhaler 2 puff INHALATION 4X/DAY PRN g 06/03/19 [History Last Taken 06/06/21] amlodipine 5 mg tablet 5 mg PO DAILY 06/03/19 [History Last Taken 06/05/21] budesonide-formoterol HFA 160 mcg-4.5 mcg/actuation aerosol inhaler 2 puff INHALATION BID 06/03/19 [History Last Taken 06/06/21] tiotropium bromide 18 mcg capsule with inhalation device 1 cap INHALATION DAILY 06/03/19 [History Last Taken 06/06/21] losartan 100 mg-hydrochlorothiazide 12.5 mg tablet 1 tab PO DAILY #90 tab 06/23/19 [Rx Last Taken 06/06/21] Trelegy Ellipta 1 inh INHALATION DAILY 06/06/21 [History Last Taken Unknown] prednisone 40 mg PO DAILY #10 tab 06/09/21 [Rx Last Taken Unknown] Allergy/AdvReac Type Severity Reaction Status Date / Time lisinopril AdvReac Intermediate cough Verified 06/06/21 14:28 Family History Mother Diabetes Father Diabetes Brother CAD (coronary artery disease) stents Brother , age 58 CAD (coronary artery disease) stents Sister Diabetes Surgical History History of appendectomy Social History Smoking Status: Light Smoker (<10/day) alcohol intake: never substance use type: does not use caffeine: Yes Type: coffee Number of servings: 1 ROS Review of Systems ROS Unobtainable: due to endotracheal tube Physical Exam Resp Resp Narrative: Patient currently intubated Effort and Inspection: tachypneic, respiratory distress and uses accessory mus cles Cardio Rate: tachycardic GI GI Narrative: Significantly distended abdomen. Large amount of right-sided scrotal hernia with small intestine located within it. Lab / Micro Data Result Diagrams: 07/07/21 10:00 07/07/21 05:50 Labs: Laboratory Results - last 24 hr 07/06/21 21:13: WBC 23.0 H, RBC 5.02, Hgb 14.6, Hct 45.5, MCV 90.6, MCH 29.1, MCHC 32.1, RDW Std Deviation 48.6 H, RDW Coeff of Kannan 14.5, Plt Count 595 H, MPV 10.2, Immature Gran % (Auto) 1.700 H, Neut % (Auto) 87.9 H, Lymph % (Auto) 3.6 L , [place] % (Auto) 6.1, Eos % (Auto) 0.0, Baso % (Auto) 0.7, Absolute Neuts (auto) 20.2 H, Absolute Lymphs (auto) 0.82 L, Nucleated RBC % 0, Differential Comment SEE COMMENT, Platelet Estimate MKD INC, Plt Morphology Comment LARGE, RBC Morphology N CHROM, Anisocytosis RARE, Macrocytosis RARE 07/06/21 21:13: Sodium 131 L, Potassium 4.7, Chloride 88 L, Carbon Dioxide 31.0, Anion Gap 12, BUN 66 H, Creatinine 2.94 H, Estim Creat Clear Calc 21.25, Est GFR (MDRD) Af Amer 28 L, Est GFR (MDRD) Non-Af 23 L, BUN/Creatinine Ratio 22.4 H, Glucose 196 H, Calcium 9.4, Total Bilirubin 0.70, AST 21, ALT 40, Alkaline Phosphatase 92, Total Protein 8.0, Albumin 2.8 L, Globulin 5.2 H, Albumin/Globulin Ratio 0.5 L, Lipase 23 L 07/07/21 05:50: WBC 22.1 H, RBC 4.76, Hgb 13.9, Hct 43.5, MCV 91.4, MCH 29.2, MCHC 32.0, RDW Std Deviation 49.1 H, RDW Coeff of [place] 14.6, Plt Count 564 H, MPV 10.2, Immature Gran % (Auto) 1.200 H, Neut % (Auto) 90.6 H, Lymph % (Auto) 2.8 L , [place] % (Auto) 4.3, Eos % (Auto) 0.3, Baso % (Auto) 0.8, Absolute Neuts (auto) 20.0 H, Absolute Lymphs (auto) 0.63 L, Nucleated RBC % 0, Differential Comment SCANNED 07/07/21 05:50: Sodium 132 L, Potassium 4.6, Chloride 92 L, Carbon Dioxide 31.0, Anion Gap 9, BUN 73 H, Creatinine 3.37 H, Estim Creat Clear Calc 18.54, Est GFR (MDRD) Af Amer 24 L, Est GFR (MDRD) Non-Af 20 L, BUN/Creatinine Ratio 21.7 H, Glucose 158 H, Calcium 8.5 07/07/21 08:39: POC Glucose 166 H 07/07/21 10:00: PT 18.0 H, INR 1.6, APTT 37.7 H Micro: Microbiology 07/06/21 22:32 Nasal Secretion SARS-CoV-2 Antigen (Rapid) - Final ABG Data ABG results: ABG 07/07/21 07/07/21 08:26 10:28 Specimen Type ART ART Sample Site R Radial R Radial pH 7.23 L 7.28 L Bicarbonate Actual 25.5 20.2 L Total CO2 27 22 Base Excess -2 -7 L O2 Saturation 95 99 O2 % 100 ABG pCO2 60.5 H 42.9 ABG pO2 89 178 H Jayden Test Positive Positive Respiration Rate 14 O2 Delivery Device NRB Adult Vent Liter Flow 15.0 Vent Mode AC Tidal Volume 400 POC PEEP 5 Radiology Impression Chest X-Ray 07/07/21 08:16 IMPRESSION: Pneumoperitoneum new since previous exam. Electronically Signed: Mario Alberto Gomez MD at 8:55 EDT Tel , Service support , ADDENDUM: 07/07/21 1011 IMPRESSION: Pneumoperitoneum new since previous exam. N.B. : The above Results were Read Back by Mario Alberto Gomez MD to Dr. Noni MD, and understanding confirmed on 07/07/2021 10:04:07 (ET). Electronically Signed: Mario Alberto Gomez MD at 8:55 EDT Tel , Service support , KUB X-Ray 07/07/21 08:16 IMPRESSION: Pneumoperitoneum. Fecal retention. Electronically Signed: Mario Alberto Gomez MD at 8:57 EDT Tel , Service support , Chest X-Ray 07/07/21 09:27 IMPRESSION: Status post intubation and nasogastric tube placement. Atelectatic changes in the left lung base. Electronically Signed: Mario Alberto Gomez MD at 10:24 EDT Tel , Service support ,
[2021-07-07 11:00] LABS: Hematocrit 43.8 % (40-54); Hemoglobin 13.6 g/dL (13.0-16.5)
--- NOTE | 2021-07-07 11:00 | NURSING ---
Daughter Omar at bedside. She is waiting to hear from pt's brothers at this time and will make a decision on extubation once she hears from them.
--- NOTE | 2021-07-07 11:28 | CASEMGMT ---
SOCIAL WORK Referral Source: CM Reason for Consult: End of life Met with patient's step-daughter in room. Patient intubated. Daughter reports patient's brother, Chaz Tellez en route to hospital and then plan to extubate patient. Emotional support provided. Step-daughter declined need for hospice. Plan: Terminal wean once brother arrives. Nursing aware. SW to remain available for support. Gabrielle Eden, TRADE SPECIALIST, SCHOOL BUS ATTENDANT
[2021-07-07] MEDS: LORazepam 2 MG/ML Syringe IV (12:22)
[2021-07-07] MEDS: Morphine 2 MG/ML Syringe IV (12:23)
--- NOTE | 2021-07-07 12:32 | CPS ---
Patient terminally extubated at 1227.
[2021-07-07 13:36] LABS: CPK Total, Creatine Kinase 155 U/L (39-308); Triglycerides 111 mg/dL
--- NOTE | 2021-07-07 14:57 | EXP.PCM_ITS ---
Preliminary Cause of Preliminary Cause of Preliminary Cause of : Acute combined respiratory failure secondary to acute COPD exacerbation Septic shock Acute abdomen?acute pneumoperitoneum secondary to perforated bowel Date of Admission: 07/06/21 Date of : 07/07/21 Principle Diagnosis Acute combined respiratory failure Septic shock Acute abdomen secondary to acute pneumothorax from perforated bowel LEYDA on CKD stage 3A Acute COPD exacerbation Acute GI bleed Problem List: Active and Suspected Problems (Updated 07/07/21 @ 10:[address] 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 Patient was in the ED 4 days ago and given enemas with some relief. He subsequently presented on the day of admission with ongoing worsening abdominal distention, nausea and vomiting. Patient was admitted to the floor and received enemas. Overnight he became progressively short of breath. He required more than 6 L of oxygen. He had worsening abdominal discomfort. He was given IV Lasix 40 mg x 1, he received breathing treatments. ABG showed respiratory acidosis. Patient had grossly distended abdomen and had an NG tube placed?showed large amount of coffee-ground emesis. Patient was emergently transferred to the ICU where he was intubated and put on mechanical ventilator. He subsequently needed a central line placement for hypotension. Stat KUB and chest x-ray showed pneumoperitoneum. General surgery and gastroenterology were consulted. Upon further discussion by general surgery with family, family decided to make patient DNR CC and go for comfort care. Family were available to see patient. Patient was similarly extubated. Time of was 1248. Assessment & Plan Assessment/Plan (1) Acute on chronic respiratory failure with hypoxia and hypercapnia: (2) Acute abdomen: (3) Septic shock: (4) Pneumoperitoneum: (5) Bowel obstruction: QUALIFIERS: Intestinal obstruction type: unspecified Intestinal obstruction extent: unspecified extent Qualified Code(s): K56.609 - Unspecified intestinal obstruction, unspecified as to partial versus complete obstruction (6) Upper GI bleed: (7) COPD (chronic obstructive pulmonary disease): QUALIFIERS: COPD type: unspecified COPD Qualified Code(s): J44.9 - Chronic obstructive pulmonary disease, unspecified Visit Charges Inpatient E&M: 45673 Disch Hosp
== END 2021-07-07 12:48 | DRG 871 ==
LOC: ED 22:47 → MS2 22:56 → ICU 07-07 09:03
PROVIDERS: Internal Medicine Critical Care Medicine; Admitting Provider Hospitalist; Emergency Provider Emergency Medicine; PCP Family Medicine; Visit Provider Internal Medicine
DX: A41.9 Sepsis, unspecified organism (principal); R65.21 Severe sepsis with septic shock; J96.22 Acute and chronic respiratory failure with hypercapnia; J96.21 Acute and chronic respiratory failure with hypoxia; N17.9 Acute kidney failure, unspecified; J93.9 Pneumothorax, unspecified; J44.1 Chronic obstructive pulmonary disease with (acute) exacerbation; I50.42 Chronic combined systolic (congestive) and diastolic (congestive) heart failure; I13.0 Hypertensive heart and chronic kidney disease with heart failure and stage 1 through stage 4 chronic kidney disease, or unspecified chronic kidney disease; K57.20 Diverticulitis of large intestine with perforation and abscess without bleeding; K56.609 Unspecified intestinal obstruction, unspecified as to partial versus complete obstruction; K59.09 Other constipation; K40.90 Unilateral inguinal hernia, without obstruction or gangrene, not specified as recurrent; N18.31 Chronic kidney disease, stage 3a; Z99.81 Dependence on supplemental oxygen; F17.210 Nicotine dependence, cigarettes, uncomplicated; E11.22 Type 2 diabetes mellitus with diabetic chronic kidney disease; E86.0 Dehydration; I25.10 Atherosclerotic heart disease of native coronary artery without angina pectoris; Z66 Do not resuscitate; Z82.49 Family history of ischemic heart disease and other diseases of the circulatory system; Z83.3 Family history of diabetes mellitus; Z90.49 Acquired absence of other specified parts of digestive tract; Z79.899 Other long term (current) drug therapy
CPT/HCPCS: 31500; 36415; 36600; 71045; 74018; 74177; 80048; 80053; 82550; 82803; 82962; 83690; 84478; 85014; 85018; 85025; 85610; 85730; 87070; 87077; 87186; 87205; 87426; 93005; 94002; 94640; 94799; 96374; 99251; 99285; 99406; J7030; J7050; J7120; Q9957; Q9967; A4216; C1751; G0463; J1940; J2405; J3010; J3490